=== PATIENT | female | born 1945 | race Caucasian/White ===

== ENCOUNTER → 2018-11-22 | Outpatient (CLI) | payer MEDICARE, OTHER, SELFPAY ==
[2018-11-22 11:33] VITALS: BMI 27.5
[2018-11-22 21:59] LABS: Absolute Lymphocyte Count 1.57 X10^3/ul (0.83-4.51); Absolute Neutrophil Count 8.8 X10^3/uL (2.0-7.7); Basophil# 0.03 X10^3/uL; Basophil% 0.3 % (0-1); Eosinophil# 0.06 X10^3/uL; Eosinophils% 0.5 % (0-5); Hematocrit 47.3 % (37-47); Hemoglobin 15.6 g/dl (12.0-15.0); Lymphocyte # 1.57 X10^3/ul (4.0); Lymphocyte % 14.3 % (19-41); Mean Corpuscular Hgb 31.5 pg (27.0-32.0); Mean Corpuscular Volume 95.6 fL (81-99); Mean Platelet Vol. 9.6 fl (6.2-12.0); Monocyte% 4.6 % (0-10); Neutrophil % 80.1 % (47-70); Platelet Count 331 K/mm3 (150-450); RBC Distribution Width CV 12.4 % (11.6-14.6); RBC Distribution Width SD 42.8 fl (35.1-43.9); Red Blood Count 4.95 M/mm3 (4.2-5.4)
[2018-11-22 22:00] LABS: POSITIVE COUNT NO; POSITIVE DIFFERENTIAL NO; POSITIVE MORPHOLOGY NO
[2018-11-22 22:12] LABS: AST(SGOT) 27 U/L (15-37); Alanine Aminotransfer ALT/SGPT 29 U/L (13-56); Albumin, Serum 4.1 g/dL (3.2-5.0); Alkaline Phosphatase 85 U/L (45-117); Anion Gap 7 (5-15); BUN 18 mg/dL (7-18); BUN/Creat Ratio 17.6 RATIO (10-20); Calcium,Total 9.3 mg/dL (8.5-10.1); Chloride 107 mmol/L (98-107); Cholesterol 193 mg/dL (200); Creatinine, Serum 1.02 mg/dL (0.55-1.02); EST Glomerular Filtration Rate 57 mL/min (>60); Est Glom Filt Rate - Afr Amer 68 mL/min (>60); Globulin 4.1 g/dL (2.2-4.2); Glucose 142 mg/dL (74-106); High Density Lipoprotein 70 mg/dL; Potassium 3.8 mmol/L (3.5-5.1); Protein, Total 8.2 g/dL (6.4-8.2); Sodium Level 142 mmol/L (136-145); Thyroid Stim Hormone (TSH) 1.45 uIU/mL (0.358-3.74); Triglycerides 112 mg/dL; Very Low Density Lipoprotein 22 mg/dL (5-40)
== END | disposition home or self-care (01) ==
PROVIDERS: Referring Provider Nurse Practitioner; Visit Provider Nurse Practitioner
DX: E78.5 Hyperlipidemia, unspecified (principal); R10.13 Epigastric pain; R68.84 Jaw pain; R30.0 Dysuria
CPT/HCPCS: 80053; 80061; 84443; 84484; 85025

== ENCOUNTER → 2020-02-17 | Outpatient (CLI) | payer MEDICARE, OTHER, SELFPAY ==
[2020-02-17 15:07] VITALS: BMI 26.7
[2020-02-17 21:05] LABS: Absolute Neutrophil Count 3.3 X10^3/uL (2.0-7.7); Basophil# 0.07 X10^3/uL; Eosinophil# 0.18 X10^3/uL; Eosinophils% 2.5 % (0-5); Hematocrit 45.3 % (37-47); Hemoglobin 14.7 g/dL (12.0-15.0); Lymphocyte % 41.6 % (19-41); Mean Corp Hgb Conc 32.5 g/dL (32-36); Mean Corpuscular Hgb 31.6 pg (27.0-32.0); Mean Corpuscular Volume 97.4 fL (81-99); Mean Platelet Vol. 9.7 fl (6.2-12.0); Monocyte# 0.63 X10^3/uL; Monocyte% 8.7 % (0-10); NRBC Flagged by Analyzer 0 % (0-5); Neutrophil # 3.32 X10^3/uL (2.7-7.7); Neutrophil % 46.1 % (47-70); Platelet Count 332 K/mm3 (150-450); RBC Distribution Width SD 42.6 fl (35.1-43.9); Red Blood Count 4.65 M/mm3 (4.2-5.4); White Blood Count 7.2 K/mm3 (4.4-11.0)
[2020-02-17 21:32] LABS: ALB/GLOB Ratio 1.1 RATIO (0.9-2.4); AST(SGOT) 20 U/L (15-37); Alanine Aminotransfer ALT/SGPT 26 U/L (13-56); Albumin, Serum 4.1 g/dL (3.2-5.0); Alkaline Phosphatase 75 U/L (45-117); Anion Gap 8 (5-15); BUN 12 mg/dL (7-18); BUN/Creat Ratio 11.4 RATIO (10-20); Calcium,Total 9.2 mg/dL (8.5-10.1); Chloride 105 mmol/L (98-107); Cholesterol 173 mg/dL (200); Creatinine, Serum 1.05 mg/dL (0.55-1.02); EST Glomerular Filtration Rate 55 mL/min (>60); Est Glom Filt Rate - Afr Amer 66 mL/min (>60); Globulin 3.8 g/dL (2.2-4.2); Glucose 111 mg/dL (74-106); High Density Lipoprotein 70 mg/dL; Potassium 3.8 mmol/L (3.5-5.1); Protein, Total 7.9 g/dL (6.4-8.2); Sodium Level 140 mmol/L (136-145); Triglycerides 128 mg/dL; Very Low Density Lipoprotein 26 mg/dL (5-40)
== END | disposition home or self-care (01) ==
PROVIDERS: Referring Provider Nurse Practitioner; Visit Provider Nurse Practitioner
DX: I10 Essential (primary) hypertension (principal); E78.5 Hyperlipidemia, unspecified
CPT/HCPCS: 80053; 80061; 85025

== ENCOUNTER → 2021-02-10 | Outpatient (CLI) | payer MEDICARE, SELFPAY ==
[2021-02-10 17:53] VITALS: BMI 27.3
[2021-02-10 23:55] LABS: Absolute Neutrophil Count 3.1 X10^3/uL (2.0-7.7); Basophil# 0.07 X10^3/uL; Eosinophils% 2.8 % (0-5); Hematocrit 45.3 % (37-47); Hemoglobin 14.8 g/dL (12.0-15.0); Mean Corp Hgb Conc 32.7 g/dL (32-36); Mean Corpuscular Hgb 31.1 pg (27.0-32.0); Mean Corpuscular Volume 95.2 fL (81-99); Mean Platelet Vol. 9.6 fl (6.2-12.0); Monocyte% 9.7 % (0-10); NRBC Flagged by Analyzer 0 % (0-5); Neutrophil # 3.13 X10^3/uL (2.7-7.7); Neutrophil % 43.4 % (47-70); Platelet Count 351 K/mm3 (150-450); RBC Distribution Width CV 11.7 % (11.6-14.6); RBC Distribution Width SD 40.5 fl (35.1-43.9); Red Blood Count 4.76 M/mm3 (4.2-5.4); White Blood Count 7.2 K/mm3 (4.4-11.0)
[2021-02-11 00:09] LABS: ALB/GLOB Ratio 0.9 RATIO (0.9-2.4); AST(SGOT) 19 U/L (15-37); Alanine Aminotransfer ALT/SGPT 23 U/L (13-56); Albumin, Serum 3.7 g/dL (3.2-5.0); Alkaline Phosphatase 91 U/L (45-117); Anion Gap 7 (5-15); BUN 17 mg/dL (7-18); BUN/Creat Ratio 18.7 RATIO (10-20); Calcium,Total 9.1 mg/dL (8.5-10.1); Chloride 107 mmol/L (98-107); Cholesterol 195 mg/dL (200); Creatinine, Serum 0.91 mg/dL (0.55-1.02); EST Glomerular Filtration Rate 64 mL/min (>60); Est Glom Filt Rate - Afr Amer 78 mL/min (>60); Globulin 4.2 g/dL (2.2-4.2); Glucose 114 mg/dL (74-106); High Density Lipoprotein 64 mg/dL; Potassium 3.9 mmol/L (3.5-5.1); Protein, Total 7.9 g/dL (6.4-8.2); Sodium Level 139 mmol/L (136-145); Triglycerides 197 mg/dL; Very Low Density Lipoprotein 39 mg/dL (5-40)
== END | disposition home or self-care (01) ==
PROVIDERS: PCP Nurse Practitioner; Referring Provider Nurse Practitioner; Visit Provider Nurse Practitioner
DX: I10 Essential (primary) hypertension (principal)
CPT/HCPCS: 80053; 80061; 85025

== ENCOUNTER → 2022-02-19 | Outpatient (CLI) | payer MEDICARE, SELFPAY ==
[2022-02-19 21:48] LABS: Absolute Lymphocyte Count 3.55 X10^3/uL (0.83-4.51); Basophil# 0.06 X10^3/uL; Basophil% 0.8 % (0-1); Eosinophil# 0.17 X10^3/uL; Eosinophils% 2.3 % (0-5); Hematocrit 45.2 % (37-47); Hemoglobin 14.7 g/dL (12.0-15.0); Lymphocyte # 3.55 X10^3/ul (0.83-4.51); Lymphocyte % 47.7 % (19-41); Mean Corp Hgb Conc 32.5 g/dL (32-36); Mean Corpuscular Volume 98.3 fL (81-99); Mean Platelet Vol. 9.5 fl (6.2-12.0); Monocyte# 0.64 X10^3/uL; Monocyte% 8.6 % (0-10); NRBC Flagged by Analyzer 0 % (0-5); Neutrophil # 3.02 X10^3/uL (2.7-7.7); Neutrophil % 40.5 % (47-70); Platelet Count 329 K/mm3 (150-450); RBC Distribution Width CV 12.2 % (11.6-14.6); RBC Distribution Width SD 44.1 fl (35.1-43.9); White Blood Count 7.5 K/mm3 (4.4-11.0)
[2022-02-19 22:06] LABS: AST(SGOT) 29 U/L (15-37); Alanine Aminotransfer ALT/SGPT 30 U/L (13-56); Albumin, Serum 3.8 g/dL (3.2-5.0); Alkaline Phosphatase 68 U/L (45-117); Anion Gap 8 (5-15); BUN 15 mg/dL (7-18); BUN/Creat Ratio 16.1 RATIO (10-20); Calcium,Total 9.2 mg/dL (8.5-10.1); Chloride 103 mmol/L (98-107); Cholesterol 179 mg/dL (200); Creatinine, Serum 0.93 mg/dL (0.55-1.02); EST Glomerular Filtration Rate 62 mL/min (>60); Est Glom Filt Rate - Afr Amer 75 mL/min (>60); Globulin 3.9 g/dL (2.2-4.2); Glucose 85 mg/dL (74-106); High Density Lipoprotein 59 mg/dL; Potassium 4.2 mmol/L (3.5-5.1); Protein, Total 7.7 g/dL (6.4-8.2); Sodium Level 139 mmol/L (136-145); Triglycerides 181 mg/dL; Very Low Density Lipoprotein 36 mg/dL (5-40)
[2022-02-22 15:40] LABS: Vitamin D 1,25-Dihydroxy 33.6 pg/mL (24.8-81.5)
== END | disposition home or self-care (01) ==
PROVIDERS: PCP Nurse Practitioner; Visit Provider Nurse Practitioner
DX: I10 Essential (primary) hypertension (principal); E55.9 Vitamin D deficiency, unspecified
CPT/HCPCS: 80053; 80061; 82652; 85025

== ENCOUNTER → 2023-02-20 | Outpatient (CLI) | payer MEDICARE, SELFPAY ==
[2023-02-20 20:55] LABS: Absolute Lymphocyte Count 3.61 X10^3/uL (0.83-4.51); Absolute Neutrophil Count 2.8 X10^3/uL (2.0-7.7); Basophil# 0.05 X10^3/uL; Basophil% 0.7 % (0-1); Eosinophil# 0.18 X10^3/uL; Eosinophils% 2.5 % (0-5); Hematocrit 45.2 % (37-47); Hemoglobin 14.6 g/dL (12.0-15.0); Lymphocyte # 3.61 X10^3/ul (0.83-4.51); Lymphocyte % 49.6 % (19-41); Mean Corp Hgb Conc 32.3 g/dL (32-36); Mean Corpuscular Hgb 31.3 pg (27.0-32.0); Mean Platelet Vol. 9.4 fl (6.2-12.0); Monocyte# 0.66 X10^3/uL; Monocyte% 9.1 % (0-10); NRBC Flagged by Analyzer 0 % (0-5); Neutrophil # 2.77 X10^3/uL (2.7-7.7); Platelet Count 330 K/mm3 (150-450); RBC Distribution Width CV 12.8 % (11.6-14.6); RBC Distribution Width SD 45.3 fl (35.1-43.9); Red Blood Count 4.66 M/mm3 (4.2-5.4); White Blood Count 7.3 K/mm3 (4.4-11.0)
[2023-02-20 21:08] LABS: ALB/GLOB Ratio 0.9 RATIO (0.9-2.4); AST(SGOT) 37 U/L (15-37); Alanine Aminotransfer ALT/SGPT 42 U/L (13-56); Albumin, Serum 3.7 g/dL (3.2-5.0); Alkaline Phosphatase 77 U/L (45-117); Anion Gap 4 (5-15); BUN 13 mg/dL (7-18); BUN/Creat Ratio 11.9 RATIO (10-20); Calcium,Total 9.1 mg/dL (8.5-10.1); Chloride 107 mmol/L (98-107); Cholesterol 199 mg/dL (200); Creatinine, Serum 1.09 mg/dL (0.55-1.02); EST Glomerular Filtration Rate 52 mL/min (>60); Est Glom Filt Rate - Afr Amer 63 mL/min (>60); Globulin 3.9 g/dL (2.2-4.2); Glucose 97 mg/dL (74-106); High Density Lipoprotein 73 mg/dL; Protein, Total 7.6 g/dL (6.4-8.2); Sodium Level 139 mmol/L (136-145); Triglycerides 121 mg/dL; Very Low Density Lipoprotein 24 mg/dL (5-40)
== END | disposition home or self-care (01) ==
PROVIDERS: PCP Nurse Practitioner; Referring Provider Nurse Practitioner; Visit Provider Nurse Practitioner
DX: E78.5 Hyperlipidemia, unspecified (principal); I10 Essential (primary) hypertension
CPT/HCPCS: 80053; 80061; 85025

== ENCOUNTER → 2024-02-17 | Outpatient (CLI) | payer MEDICARE, SELFPAY ==
[2024-02-17 21:15] LABS: Absolute Lymphocyte Count 4.41 X10^3/uL (0.83-4.51); Absolute Neutrophil Count 4.7 X10^3/uL (2.0-7.7); Basophil# 0.06 X10^3/uL; Basophil% 0.6 % (0-1); Eosinophil# 0.13 X10^3/uL; Eosinophils% 1.3 % (0-5); Hematocrit 46.7 % (37-47); Hemoglobin 15.4 g/dL (12.0-15.0); Lymphocyte # 4.41 X10^3/ul (0.83-4.51); Lymphocyte % 44.3 % (19-41); Mean Corpuscular Hgb 32.1 pg (27.0-32.0); Mean Corpuscular Volume 97.3 fL (81-99); Mean Platelet Vol. 9.3 fl (6.2-12.0); Monocyte# 0.66 X10^3/uL; Monocyte% 6.6 % (0-10); NRBC Flagged by Analyzer 0 % (0-5); Neutrophil # 4.68 X10^3/uL (2.7-7.7); Neutrophil % 47.1 % (47-70); Platelet Count 374 K/mm3 (150-450); RBC Distribution Width CV 12.2 % (11.6-14.6); RBC Distribution Width SD 44.2 fl (35.1-43.9)
[2024-02-17 21:31] LABS: AST(SGOT) 28 U/L (15-37); Alanine Aminotransfer ALT/SGPT 29 U/L (13-56); Albumin, Serum 4.2 g/dL (3.2-5.0); Alkaline Phosphatase 80 U/L (45-117); Anion Gap 6 (5-15); BUN 22 mg/dL (7-18); Calcium,Total 9.7 mg/dL (8.5-10.1); Chloride 104 mmol/L (98-107); Cholesterol 183 mg/dL (200); EST Glomerular Filtration Rate 51 mL/min (>60); Est Glom Filt Rate - Afr Amer 62 mL/min (>60); Globulin 4.1 g/dL (2.2-4.2); Glucose 128 mg/dL (74-106); High Density Lipoprotein 75 mg/dL; Potassium 3.9 mmol/L (3.5-5.1); Protein, Total 8.3 g/dL (6.4-8.2); Sodium Level 137 mmol/L (136-145); Triglycerides 131 mg/dL; Very Low Density Lipoprotein 26 mg/dL (5-40)
== END | disposition home or self-care (01) ==
PROVIDERS: PCP Nurse Practitioner; Visit Provider Nurse Practitioner
DX: E78.5 Hyperlipidemia, unspecified (principal); I10 Essential (primary) hypertension; M54.16 Radiculopathy, lumbar region
CPT/HCPCS: 80053; 80061; 85025

== ENCOUNTER → 2025-02-08 | Outpatient (CLI) | payer MEDICARE, SELFPAY ==
[2025-02-09 00:20] LABS: Absolute Lymphocyte Count 3.22 X10^3/uL (0.83-4.51); Absolute Neutrophil Count 4.5 X10^3/uL (2.0-7.7); Basophil% 1.1 % (0-1); Eosinophil# 0.38 X10^3/uL; Eosinophils% 4.1 % (0-5); Hematocrit 44.8 % (37-47); Hemoglobin 14.8 g/dL (12.0-15.0); Lymphocyte # 3.22 X10^3/ul (0.83-4.51); Lymphocyte % 35.1 % (19-41); Mean Corpuscular Hgb 32.3 pg (27.0-32.0); Mean Corpuscular Volume 97.8 fL (81-99); Mean Platelet Vol. 9.6 fl (6.2-12.0); Monocyte# 0.91 X10^3/uL; Monocyte% 9.9 % (0-10); NRBC Flagged by Analyzer 0 % (0-5); Neutrophil # 4.53 X10^3/uL (2.7-7.7); Neutrophil % 49.4 % (47-70); Platelet Count 379 K/mm3 (150-450); RBC Distribution Width CV 12.3 % (11.6-14.6); RBC Distribution Width SD 44.2 fl (35.1-43.9); Red Blood Count 4.58 M/mm3 (4.2-5.4); White Blood Count 9.2 K/mm3 (4.4-11.0)
[2025-02-09 02:21] LABS: ALB/GLOB Ratio 1.2 RATIO (0.9-2.4); AST(SGOT) 33 U/L (<=31); Alanine Aminotransfer ALT/SGPT 21 U/L (<=34); Albumin, Serum 4.2 g/dL (3.4-4.8); Alkaline Phosphatase 84 U/L (35-104); Anion Gap 13 (5-15); BUN 17 mg/dL (4-19); BUN/Creat Ratio 17.4 RATIO (10-20); Calcium,Total 9.8 mg/dL (7.6-11.0); Chloride 100 mmol/L (98-108); Creatinine, Serum 0.97 mg/dL (0.70-1.20); EST Glomerular Filtration Rate 60 (>60); Globulin 3.4 g/dL (2.2-4.2); Glucose 108 mg/dL (70-99); Potassium 4.2 mmol/L (3.3-5.1); Protein, Total 7.5 g/dL (5.9-8.4); Sodium Level 136 mmol/L (133-145); Total Bilirubin 0.46 mg/dL (0.00-1.30)
[2025-02-09 06:00] LABS: Cholesterol 169 mg/dL (<=200); High Density Lipoprotein 57 mg/dL; Low Density Lipoprotein Calc. 81 mg/dL; Triglycerides 154 mg/dL; Very Low Density Lipoprotein 31 mg/dL (5-40); cholesterol:hdl ratio screen 2.96
== END | disposition home or self-care (01) ==
PROVIDERS: PCP Nurse Practitioner; Referring Provider Nurse Practitioner; Visit Provider Nurse Practitioner
DX: I10 Essential (primary) hypertension (principal); E78.5 Hyperlipidemia, unspecified
CPT/HCPCS: 80053; 80061; 85025

== ENCOUNTER → 2025-04-20 | Outpatient (CLI) | payer MEDICARE, SELFPAY | END | disposition home or self-care (01) | PROVIDERS: PCP Nurse Practitioner; Visit Provider Nurse Practitioner | DX: N30.01 Acute cystitis with hematuria (principal); R30.0 Dysuria | CPT/HCPCS: 87077; 87086; 87088; 87186 ==

== ENCOUNTER → 2025-06-02 | Outpatient (CLI) | payer MEDICARE, SELFPAY ==
--- OUTSIDE RECORDS SUMMARY | 2025-06-02 17:03 | XMS RPT_ITS | CCD ---
Author Organization [facility] Care Team Providers Care Small Package And Bundle Sorter Clerk Name Role Phone Unavailable Primary Care Provider UnavailCinda Dan Primary Care Provider [phone] Derrek WAX POT TENDER-C, Cinda Primary Care Provider Derrek WAX POT TENDER-C, Cinda Attending Provider Anglin WAX POT TENDER-C, Cinda Referring Provider Anglin WAX POT TENDER, Cinda Attending Unavailable Anglin WAX POT TENDER, Cinda Referring Unavailable Anglin WAX POT TENDER, Cinda Primary Care Unavailable Anglin WAX POT TENDER, Cinda Attending Unavailable Anglin WAX POT TENDER, Cinda Primary Care Unavailable Anglin WAX POT TENDER-C, Cinda Primary Care Physician Derrek WAX POT TENDER-C, Cinda Attending Physician Allergies Allergy Classification Reported Allergen(s) Allergy Type Date of Onset Reaction(s) Facility (1 source) Penicillins Propensity to adverse reactions to drug 5 [place], [place] (1 source) Sulfonamides (Antibiotic) Propensity to adverse reactions to drug 5 [place] (2 sources) Penicillins Allergy to substance 9 Swelling [facility] (2 sources) Sulfonamides (Antibiotic) Allergy to substance 9 Rash [facility] (1 source) Penicillins Drug allergy (disorder) 9 [facility] Repository (1 source) Sulfonamides (Antibiotic) Drug allergy (disorder) 9 [facility] Repository Medications Current Medications Medication Drug Class(es) Dates Sig (Normalized) Sig (Original) ciprofloxacin 500 mg oral tablet (3 sources) Quinolone Antimicrobial Start: 04-20-2025 take 1 tablet by mouth twice daily Start: 10-31-2018 End: 11-03-2018 take 1 tablet by mouth twice daily Ciprofloxacin Hcl (Cipro) 500 mg tablet Discontinued 500 mg PO TWICE A DAY 6 3 0 October 31, 2018 12:00am November 02, 2018 12:00am November 03, 2018 12:09am latanoprost 0.05 mg/ml ophthalmic solution (2 sources) Prostaglandin Analog Start: 02-19-2022 Multiple Vitamins-Minerals (MULTI COMPLETE) CAPS (1 source) Multiple Vitamins-Minerals (MULTI COMPLETE) CAPS Take by mouth 0 Active ondansetron 4 mg oral tablet (1 source) Serotonin-3 Receptor Antagonist Start: 01-13-2018 take 1 tablet by mouth every eight hours as needed for nausea ondansetron (ZOFRAN) 4 MG tablet Take 1 tablet by mouth every 8 hours as needed for Nausea 10 tablet 0 01/13/2018 Active Completed/Discontinued Medications Medication Drug Class(es) Dates Sig (Normalized) Sig (Original) atorvastatin 10 mg oral tablet (20 sources) HMG-CoA Reductase Inhibitor Start: 06-05-2018 End: 02-08-2025 take 1 tablet by mouth once daily Atorvastatin 10 mg tablet Discontinued 10 mg PO DAILY 90 3 2024 4:12pm February 08, 2025 3:12pm gabapentin 100 mg oral capsule (10 sources) Anti-epileptic Agent Start: 02-23-2020 End: 02-10-2021 take 2 capsules by mouth four times daily as needed for pain Gabapentin 100 mg capsule Discontinued 200 mg PO .qid as needed for pain (scale score 7-10) 240 30 1 February 23, 2020 1:33pm February 10, 2021 8:35pm Start: 11-20-2019 End: 12-20-2019 take 2 capsules by mouth four times daily as needed for pain Gabapentin 100 mg capsule Discontinued 200 mg PO .qid as needed for pain (scale score 7-10) 240 30 0 November 20, 2019 4:27pm December 19, 2019 12:00am December 20, 2019 12:02am irbesartan 300 mg oral tablet (20 sources) Angiotensin 2 Receptor Michelle Start: 06-05-2018 End: 02-08-2025 take 1 tablet by mouth once daily Irbesartan 300 mg tablet Discontinued 300 mg PO DAILY 90 2024 4:12pm February 08, 2025 3:12pm predniSONE 20 mg oral tablet (14 sources) Start: 03-11-2020 End: 02-10-2021 take 2 tablets by mouth once daily Prednisone 20 mg tablet Discontinued 40 mg PO DAILY 20 0 March 11, 2020 12:00am February 10, 2021 8:35pm Start: 02-23-2020 End: 03-04-2020 take 2 tablets by mouth once daily Prednisone 20 mg tablet Discontinued 40 mg PO DAILY 20 10 0 February 23, 2020 1:33pm March 03, 2020 12:00am March 04, 2020 12:03am Start: 11-20-2019 End: 11-30-2019 take 2 tablets by mouth once daily Prednisone 20 mg tablet Discontinued 40 mg PO DAILY 20 10 November 20, 2019 4:27pm November 29, 2019 12:00am November 30, 2019 12:01am traMADol hydrochloride 50 mg oral tablet (2 sources) Opioid Agonist Start: 03-11-2020 End: 02-10-2021 take 1 tablet by mouth three times daily as needed for pain Tramadol 50 mg tablet Discontinued 50 mg PO THREE TIMES A DAY as needed for pain 63 5 March 11, 2020 12:00am February 10, 2021 8:35pm Radiculopathy, lumbar region Pain in right lower leg Problems Active Problems Problem Classification Problem Date Documented Date Episodic/Chronic Abdominal pain (2 sources) Epigastric pain; Translations: [Epigastric pain] 11-22-2018 Episodic Disorders of lipid metabolism (4 sources) Hyperlipidemia; Translations: [Hyperlipidemia, unspecified] Onset: 02-20-2016 02-20-2016 Chronic Disorders of teeth and jaw (2 sources) Jaw pain; Translations: [Jaw pain] 11-22-2018 Episodic Essential hypertension (5 sources) Essential hypertension; Translations: [Essential (primary) hypertension] Onset: 02-20-2016 02-20-2016 Chronic Genitourinary symptoms and ill-defined conditions (2 sources) Dysuria; Translations: [Dysuria] 11-03-2018 Episodic Glaucoma (2 sources) Glaucoma; Translations: [Unspecified glaucoma] 02-19-2022 Chronic Nutritional deficiencies (2 sources) Vitamin D deficiency; Translations: [Vitamin D deficiency, unspecified] 02-19-2022 Chronic Other connective tissue disease (2 sources) Pain of right lower leg; Translations: [Pain in right lower leg] 03-11-2020 Episodic Other connective tissue disease (1 source) Heavy legs; Translations: [Other symptoms and signs involving the musculoskeletal system] 04-22-2025 Episodic Other lower respiratory disease (1 source) Dyspnea; Translations: [Shortness of breath] 05-11-2025 Episodic Spondylosis; intervertebral disc disorders; other back problems (1 source) Herniation of nucleus pulposus of lumbar intervertebral disc; Translations: [Other intervertebral disc displacement, lumbar region] 05-11-2025 Chronic Spondylosis; intervertebral disc disorders; other back problems (2 sources) Lumbar radiculopathy; Translations: [Radiculopathy, lumbar region] 11-20-2019 Episodic Urinary tract infections (5 sources) Urinary tract infectious disease; Translations: [Urinary tract infection, site not specified] Onset: 05-01-2025 10-31-2018 Episodic Past or Other Problems Problem Classification Problem Date Documented Da te Episodic/Chronic Other bone disease and musculoskeletal deformities (2 sources) Osteopenia; Translations: [Other specified disorders of bone density and structure, unspecified site] Onset: 04-04-2015 04-04-2015 Episodic Results Test Name Value Interpretation Reference Range Facility Urine Cultureon 04-22-2025 [facility] Escherichia coli Nutrioso Count >100,000 Escherichia coli: REACTION Ampicillin Islt NANCY <=2 Ampicillin+Sulbac Islt NANCY <=2 S Cefepime Islt NANCY <=0.12 S cefTRIAXone Islt NANCY <=0.25 S Ciprofloxacin Islt NANCY <=0.06 S B-Lactamase Extended Susc Islt NEG Gentamicin Islt NANCY <=1 S levoFLOXacin Islt NANCY <=0.12 S Meropenem Islt NANCY <=0.25 S Nitrofurantoin Islt NANCY <=16 S Pip+Tazo Islt NANCY <=4 S TMP SMX Islt NANCY <=20 S Normal [facility] Comment on above: Performed By: #### M [id number] #### [facility] Laboratory [facility] [place], [address] Laboratory - Chemistry and C hemistry - challengeOrdered By: Cinda Anglin on 04-20-2025 Bilirubin Ql (U) Negative [facility] Glucose Ql (U) Negative [facility] Ketones Ql (U) Negative [facility] pH (U) 6.0 [pH] [facility] Specific gravity (U) [Rel density] 1.015 [facility] Urobilinogen (U) [Mass/Vol] 0.3390151 mg/dL [facility] Laboratory - Hematology and Cell countsOrdered By: Cinda Anglin on 04-20-2025 Hemoglobin Ql (U) Large [facility] Laboratory - Specimen inform ationOrdered By: Cinda Anglin on 04-20-2025 Clarity (U) Cloudy [facility] Color (U) DARK YELLOW [facility] Laboratory - UrinalysisOrder ed By: Cinda Anglin on 04-20-2025 Nitrite Ql (U) Positive [facility] Protein Ql (U) 3+ [facility] No Panel InformationOrdered By: Cinda Anglin on 04-20-2025 Urine Leukocytes Positive [facility] Urine Non-Hemolyzed Blood [facility] Urine cultureOrdered By: Ovidio Anglin on 04-20-2025 Bacteria identified Cx Nom (U) Escherichia coli Abnormal [facility] CBC W/Diff, Automatedon 07-0 Absolute Lymph 3.22 X10 3/uL Normal 0.83-4.51 [facility] Comment on above: Performed By: #### L 500.4100, L500.4050, L100.0100 #### [facility] Laboratory [address] [place], [address] Absolute Neut 4.5 X10 3/uL Normal 2.0-7.7 [facility] Comment on above: Performed By: #### L 500.4100, L500.4050, L100.0100 #### [facility] Laboratory [address] [place], [address] Basophils/100 WBC (Bld) 1.1 % High 0-1 [facility] Comment on above: Performed By: #### L 500.4100, L500.4050, L100.0100 #### [facility] Laboratory [address] [place], [address] Eosinophils/100 WBC (Bld) 4.1 % Normal 0-5 [facility] Comment on above: Performed By: #### L 500.4100, L500.4050, L100.0100 #### [facility] Laboratory [address] [place], [address] Erythrocyte distribution width (RBC) [Ratio] 12.3 % Normal 11.6-14.6 [facility] Comment on above: Performed By: #### L 500.4100, L500.4050, L100.0100 #### [facility] Laboratory [address] [place], [address] Hematocrit (Bld) [Volume fraction] 44.8 % Normal 37-47 [facility] Comment on above: Performed By: #### L 500.4100, L500.4050, L100.0100 #### [facility] Laboratory [address] [place], [address] Hemoglobin (Bld) [Mass/Vol] 14.8 g/dL Normal 12.0-15.0 [facility] Comment on above: Performed By: #### L 500.4100, L500.4050, L100.0100 #### [facility] Laboratory [address] [place], [address] IG% 0.400 Normal 0.0-0.9 [facility] Comment on above: Result Comment: IG% - Immature Granulocytes (promyelocytes, myelocytes and metamyelocytes) > 1% indicates that a LEFT SHIFT is Present. Performed By: #### L 500.4100, L500.4050, L100.0100 #### [facility] Laboratory [address] [place], [address] Lymphocytes/100 WBC (Bld) 35.1 % Normal 19-41 [facility] Comment on above: Performed By: #### L 500.4100, L500.4050, L100.0100 #### [facility] Laboratory [address] [place], [address] MCH (RBC) [Entitic mass] 32.3 pg High 27.0-32.0 [facility] Comment on above: Performed By: #### L 500.4100, L500.4050, L100.0100 #### [facility] Laboratory [address] [place], [address] MCHC (RBC) [Mass/Vol] 33.0 g/dL Normal 32-[address] [facility] Comment on above: Performed By: #### L 500.4100, L500.4050, L100.0100 #### [facility] Laboratory [address] [place], [address] MCV (RBC) [Entitic vol] 97.8 fL Normal 81-99 [facility] Comment on above: Performed By: #### L 500.4100, L500.4050, L100.0100 #### [facility] Laboratory [address] [place], [address] Monocytes/100 WBC (Bld) 9.9 % Normal 0-10 [facility] Comment on above: Performed By: #### L 500.4100, L500.4050, L100.0100 #### [facility] Laboratory [address] [place], [address] Neutrophils/100 WBC (Bld) 49.4 % Normal 47-70 [facility] Comment on above: Performed By: #### L 500.4100, L500.4050, L100.0100 #### [facility] Laboratory [address] [place], [address] Nucleated RBC (Bld) [#/Vol] 0 10*3/uL Normal 0-5 [facility] Comment on above: Performed By: #### L 500.4100, L500.4050, L100.0100 #### [facility] Laboratory [address] [place], [address] Platelet mean volume (Bld) [Entitic vol] 9.6 fL Normal 6.2-12.0 [facility] Comment on above: Performed By: #### L 500.4100, L500.4050, L100.0100 #### [facility] Laboratory [address] [place], [address] Platelets (Bld) [#/Vol] 379 10*3/uL Normal 150-450 [facility] Comment on above: Performed By: #### L 500.4100, L500.4050, L100.0100 #### [facility] Laboratory [address] [place], [address] RBC (Bld) [#/Vol] 4.58 10*6/uL Normal 4.2-5.4 [facility] Comment on above: Performed By: #### L 500.4100, L500.4050, L100.0100 #### [facility] Laboratory [address] [place], [address] RDW SD 44.2 fl High 35.1-43.9 [facility] Comment on above: Performed By: #### L 500.4100, L500.4050, L100.0100 #### [facility] Laboratory [address] [place], [address] WBC (Bld) [#/Vol] 9.2 10*3/uL Normal 4.4-11.0 [facility] Comment on above: Performed By: #### L 500.4100, L500.4050, L100.0100 #### [facility] Laboratory [address] [place], [address] Comprehensive Metabolic Prof [facility] 02-09-2025 Albumin [Mass/Vol] 4.2 g/dL Normal 3.4-4.8 [facility] Comment on above: Performed By: #### L 500.4100, L500.4050, L100.0100 #### [facility] Laboratory [address] [place], [address] Albumin/Globulin [Mass ratio] 1.2 {ratio} Normal 0.9-2.4 [facility] Comment on above: Performed By: #### L 500.4100, L500.4050, L100.0100 #### [facility] Laboratory [address] [place], [address] ALK PHOS 84 U/L Normal 35-104 [facility] Comment on above: Performed By: #### L 500.4100, L500.4050, L100.0100 #### [facility] Laboratory [address] [place], [address] ALT [Catalytic activity/Vol] 21 U/L Normal <=34 [facility] Comment on above: Performed By: #### L 500.4100, L500.4050, L100.0100 #### [facility] Laboratory [address] [place], [address] AST [Catalytic activity/Vol] 33 U/L High <=31 [facility] Comment on above: Performed By: #### L 500.4100, L500.4050, L100.0100 #### [facility] Laboratory [address] [place], [address] Bilirubin [Mass/Vol] 0.46 mg/dL Normal 0.00-1.[address] [facility] Comment on above: Performed By: #### L 500.4100, L500.4050, L100.0100 #### [facility] Laboratory [address] [place], [address] BUN/CRE 17.4 RATIO Normal 10-20 [facility] Comment on above: Performed By: #### L 500.4100, L500.4050, L100.0100 #### [facility] Laboratory [address] [place], [address] Calcium [Mass/Vol] 9.8 mg/dL Normal 7.6-11.0 [facility] Comment on above: Performed By: #### L 500.4100, L500.4050, L100.0100 #### [facility] Laboratory [address] [place], [address] Chloride [Moles/Vol] 100 mmol/L Normal 98-[address] [facility] Comment on above: Performed By: #### L 500.4100, L500.4050, L100.0100 #### [facility] Laboratory [address] [place], [address] CO2 [Moles/Vol] 23.0 mmol/L Normal 21.0-32.0 [facility] Comment on above: Performed By: #### L 500.4100, L500.4050, L100.0100 #### [facility] Laboratory [address] [place], [address] Creatinine [Mass/Vol] 0.97 mg/dL Normal 0.70-1.[address] [facility] Comment on above: Performed By: #### L 500.4100, L500.4050, L100.0100 #### [facility] Laboratory [address] [place], [address] GAP 13 Normal 5-15 [facility] Comment on above: Performed By: #### L 500.4100, L500.4050, L100.0100 #### [facility] Laboratory [address] [place], [address] GFR/1.73 sq M.predicted among non-blacks MDRD (S/P/Bld) [Vol rate/Area] 60 mL/min/{1.73_m2} Normal >60 [facility] Comment on above: Result Comment: mL/m in/1.73m2 CKD-EPI Creatinine Equation (2020) Performed By: #### L 500.4100, L500.4050, L100.0100 #### [facility] Laboratory [address] [place], [address] Globulin (S) [Mass/Vol] 3.4 g/dL Normal 2.2-4.2 [facility] Comment on above: Performed By: #### L 500.4100, L500.4050, L100.0100 #### [facility] Laboratory [address] [place], [address] Glucose [Mass/Vol] 108 mg/dL High 70-99 [facility] Comment on above: Performed By: #### L 500.4100, L500.4050, L100.0100 #### [facility] Laboratory [address] [place], [address] Potassium [Moles/Vol] 4.2 mmol/L Normal 3.3-5.[address] [facility] Comment on above: Performed By: #### L 500.4100, L500.4050, L100.0100 #### [facility] Laboratory [address] [place], [address] Sodium [Moles/Vol] 136 mmol/L Normal 133-145 [facility] Comment on above: Performed By: #### L 500.4100, L500.4050, L100.0100 #### [facility] Laboratory [address] [place], [address] T PROT 7.5 g/dL Normal 5.9-8.4 [facility] Comment on above: Performed By: #### L 500.4100, L500.4050, L100.0100 #### [facility] Laboratory [address] [place], [address] Urea nitrogen [Mass/Vol] 17 mg/dL Normal 4-19 [facility] Comment on above: Performed By: #### L 500.4100, L500.4050, L100.0100 #### [facility] Laboratory [address] [place], [address] Lipid Profileon 02-09-2025 CHOL:HDL 2.96 Normal [facility] Comment on above: Performed By: #### L 500.4100, L500.4050, L100.0100 #### [facility] Laboratory [address] [place], [address] Cholesterol [Mass/Vol] 169 mg/dL Normal <=200 [facility] Comment on above: Result Comment: Chol esterol level, Desirable <200 mg/dL Borderline high cholesterol 200-239 mg/dL High cholesterol >=240 mg/dL Recommendations of the NCEP Adult Treatment Panel for the following risk-cutoff thresholds for the [place] population. Performed By: #### L 500.4100, L500.4050, L100.0100 #### [facility] Laboratory [address] [place], [address] Cholesterol in HDL [Mass/Vol] 57 mg/dL Normal [facility] Comment on above: Result Comment: Saundra onal Cholesterol Education Program (NCEP) guidelines: <40 mg/dL: Low HDL-cholesterol (major risk factor for CHD) >= 60 mg/dL: High HDL-cholesterol (negative risk factor for CHD) HDL-cholesterol is affected by a number of factors, e.g. smoking, exercise, hormones, sex and age. Performed By: #### L 500.4100, L500.4050, L100.0100 #### [facility] Laboratory [address] [place], [address] Cholesterol in LDL [Mass/Vol] 81 mg/dL Normal [facility] Comment on above: Result Comment: Bord jjswgr=609-452 mg/dL Higher Fpiz=902 mg/dL or greater Performed By: #### L 500.4100, L500.4050, L100.0100 #### [facility] Laboratory [address] [place], [address] Cholesterol in VLDL [Mass/Vol] 31 mg/dL Normal 5-40 [facility] Comment on above: Performed By: #### L 500.4100, L500.4050, L100.0100 #### [facility] Laboratory [address] [place], [address] Triglyceride [Mass/Vol] 154 mg/dL Normal [facility] Comment on above: Result Comment: The drugs N-Acetylcysteine and Metamizole may falsely depress this assay. Normal range: <150 mg/dL Borderline High: 150-199 mg/dL High: 200-499 mg/dL Very High: >500 mg/dL Performed By: #### L 500.4100, L500.4050, L100.0100 #### [facility] Laboratory [address] [place], [place], [address] Absolute lymphocyte countOrd ered By: Cinda Anglin on 02-08-2025 Lymphocytes Auto (Unsp spec) [#/Vol] 3.22 10*3/uL 0.83-4.51 [facility] Absolute neutrophil countOrd ered By: Cinda Anglin on 02-08-2025 Neutrophils (Bld) [#/Vol] 4.5 10*3/uL 2.0-7.7 [facility] Anion gap in Serum or Plasma Ordered By: Cinda Anglin on 02-08-2025 Anion gap [Moles/Vol] 13 mmol/L 5-[address] [facility] Automated lymphocyte count a s percentage of total leukocytesOrdered By: Cinda Anglin on 02-08-2025 Lymphocytes/100 WBC Auto (Unsp spec) 35.1 % 19-41 [facility] BUN/creatinine ratioOrdered By: Cinda Anglin on 02-08-2025 Urea nitrogen/Creatinine [Mass ratio] 17.4 mg/mg 10-20 [facility] Basophil percentageOrdered B y: Cinda Anglin on 02-08-2025 Basophils/100 WBC (Bld) 1.1 % High 0-1 [facility] Bilirubin, totalOrdered By: Cinda Anglin on 02-08-2025 Bilirubin [Mass/Vol] 0.46 mg/dL 0.00-1.[address] [facility] Calculated very low density lipoprotein (VLDL) cholesterol measurementOrdered By: Cinda Anglin on 02-08-2025 Calculated very low density lipoprotein (VLDL) cholesterol measurement 31 mg/dL 5-40 [facility] Carbon dioxide, total [Moles /volume] in Central venous bloodOrdered By: Cinda Anglin on 02-08-2025 CO2 [Moles/Vol] 23.0 mmol/L 21.0-32.0 [facility] Chloride assayOrdered By: Do ra Anglin on 02-08-2025 Chloride [Moles/Vol] 100 mmol/L 98-[address] [facility] Eosinophil percentageOrdered By: Cinda Anglin on 02-08-2025 Eosinophils/100 WBC (Bld) 4.1 % 0-5 [facility] Erythrocyte distribution wid th ratioOrdered By: Cinda Anglin on 02-08-2025 Erythrocyte distribution width (RBC) [Ratio] 12.3 % 11.6-14.6 [facility] Erythrocyte distribution wid th standard deviationOrdered By: Cinad Anglin on 02-08-2025 Erythrocyte distribution width (RBC) [Ratio] 44.2 fl High 35.1-43.9 [facility] Glomerular filtration rate ( GFR) estimation/1.73 sq m using serum, plasma, or whole bOrdered By: Cinda Anglin on 02-08-2025 GFR/1.73 sq M.predicted among non-blacks MDRD (S/P/Bld) [Vol rate/Area] 60 mL/min/{1.73_m2} >60 [facility] Comment on above: mL/min/1.73m2 CKD-EP I Creatinine Equation (2020) Hematocrit Auto (Bld) [Volum e fraction]Ordered By: Cinda Anglin on 02-08-2025 Hematocrit (Bld) [Volume fraction] 44.8 % 37-47 [facility] Hemoglobin measurementOrdere d By: Cinda Anglin on 02-08-2025 Hemoglobin (Bld) [Mass/Vol] 14.8 g/dL 12.0-15.0 [facility] Immature granulocytes/100 WB C Auto (Bld)Ordered By: Cinda Anglin on 02-08-2025 Immature granulocytes/100 WBC (Bld) 0.400 % 0.0-0.9 [facility] Comment on above: IG% - Immature Granu locytes (promyelocytes, myelocytes and metamyelocytes) > 1% indicates that a LEFT SHIFT is Present. LDL calc ser/plasOrdered By: Cinda Anglin on 02-08-2025 Cholesterol in LDL [Mass/Vol] 81 mg/dL [facility] Comment on above: Emuwgpqonj=009-734 m g/dL & Higher Wwdb=278 mg/dL or greater Laboratory - Chemistry and C hemistry - challengeOrdered By: Cinda Anglin on 02-08-2025 AST [Catalytic activity/Vol] 33 U/L High <32 [facility] MCV (mean corpuscular volume ) determinationOrdered By: Cinda Anglin on 02-08-2025 MCV (RBC) [Entitic vol] 97.8 fL 81-99 [facility] Mean corpuscular hemoglobin (MCH) determinationOrdered By: Cinda Anglin on 02-08-2025 MCH (RBC) [Entitic mass] 32.3 pg High 27.0-32.0 [facility] Mean corpuscular hemoglobin concentration (MCHC) determinationOrdered By: Cinda Anglin on 02-08-2025 MCHC (RBC) [Mass/Vol] 33.0 g/dL 32-[address] [facility] Mean platelet volume determi nationOrdered By: Cinda Angiln on 02-08-2025 Platelet mean volume (Bld) [Entitic vol] 9.6 fL 6.2-12.0 [facility] Monocyte percentageOrdered B y: Cinda Anglin on 02-08-2025 Monocytes/100 WBC (Bld) 9.9 % 0-10 [facility] Neutrophil percentageOrdered By: Cinda Anglin on 02-08-2025 Neutrophils/100 WBC (Bld) 49.4 % 47-70 [facility] Nucleated red blood cell per centageOrdered By: Cinda Anglin on 02-08-2025 Nucleated RBC/100 WBC (Bld) [Ratio] 0 % 0-5 [facility] Platelet countOrdered By: Do ra Anglin on 02-08-2025 Platelets (Bld) [#/Vol] 379 10*3/uL 150-450 [facility] Potassium measurement (mass/ volume)Ordered By: Cinda Anglin on 02-08-2025 Potassium (Unsp spec) [Mass/Vol] 4.2 mmol/L 3.3-5.1 [facility] RBC Auto (Bld) [#/Vol]Ordere d By: Cinda Anglin on 02-08-2025 RBC (Bld) [#/Vol] 4.58 10*6/uL 4.2-5.4 [facility] Screening total cholesterol/ high density lipoprotein (HDL) cholesterol ratioOrdered By: Cinda Anglin on 02-08-2025 Cholesterol.total/Cholest blanca in HDL [Mass ratio] 2.96 {ratio} [facility] Serum creatinine measurement (mass/volume)Ordered By: Cinda Anglin on 02-08-2025 Creatinine [Mass/Vol] 0.97 mg/dL 0.70-1.[address] [facility] Serum globulin measurementOr dered By: Cinda Anglin on 02-08-2025 Globulin (S) [Mass/Vol] 3.4 g/dL 2.2-4.2 [facility] Serum glucose measurement (m ass/volume)Ordered By: Cinda Anglin on 02-08-2025 Glucose [Mass/Vol] 108 mg/dL High 70-99 [facility] Serum or plasma alanine schultz otransferase (ALT) measurementOrdered By: Cinda Anglin on 02-08-2025 ALT [Catalytic activity/Vol] 21 U/L <35 [facility] Serum or plasma albumin telma urement (mass/volume)Ordered By: Cinda Anglin on 02-08-2025 Albumin [Mass/Vol] 4.2 g/dL 3.4-4.8 [facility] Serum or plasma albumin/glob ulin mass ratioOrdered By: Cinda Anglin on 02-08-2025 Albumin/Globulin [Mass ratio] 1.2 {ratio} 0.9-2.4 [facility] Serum or plasma alkaline yoseph sphatase measurementOrdered By: Cinda Anglin on 02-08-2025 ALP [Catalytic activity/Vol] 84 U/L 35-104 [facility] Serum or plasma calcium telma urement (mass/volume)Ordered By: Cinda Anglin on 02-08-2025 Calcium [Mass/Vol] 9.8 mg/dL 7.6-11.0 [facility] Serum or plasma cholesterol in HDL measurement (mass/volume)Ordered By: Cinda Anglin on 02-08-2025 Cholesterol in HDL [Mass/Vol] 57 mg/dL >40 [facility] Comment on above: National Cholesterol Education Program (NCEP) guidelines:<40 mg/dL: Low HDL-cholesterol (major risk factor for CHD)>= 60 mg/dL: High HDL-cholesterol (negative risk factor for CHD)HDL-cholesterol is affected by a number of factors, e.g. smoking, exercise, hormones, sex and age. Serum or plasma cholesterol measurement (mass/volume)Ordered By: Cinda Anglin on 02-08-2025 Cholesterol [Mass/Vol] 169 mg/dL <201 [facility] Comment on above: Cholesterol level, D esirable <200 mg/dLBorderline high cholesterol 200-239 mg/dLHigh cholesterol >=240 mg/dLRecommendations of the NCEP Adult Treatment Panel for the following risk-cutoff thresholds for the [place] population. Serum or plasma urea nitroge n measurement (mass/volume)Ordered By: Cinda Anglin on 02-08-2025 Urea nitrogen [Mass/Vol] 17 mg/dL 4-19 [facility] Sodium levelOrdered By: Cinda Anglin on 02-08-2025 Sodium [Moles/Vol] 136 mmol/L 133-145 [facility] Total proteinOrdered By: Ovidio Anglin on 02-08-2025 Protein [Mass/Vol] 7.5 g/dL 5.9-8.4 [facility] Triglycerides measurementOrd ered By: Cinda Anglin on 02-08-2025 Triglyceride [Mass/Vol] 154 mg/dL <199 [facility] Comment on above: The drugs N-Acetylcy steine and Metamizole may falsely depress this assay. Normal range: <150 mg/dLBorderline High: 150-199 mg/dLHigh: 200-499 mg/dLVery High: >500 mg/dL White blood cell (WBC) count Ordered By: Cinda Anglin on 02-08-2025 WBC (Bld) [#/Vol] 9.2 10*3/uL 4.4-11.0 [facility] 36on 07-04-2024 36 duplicate Normal [facility] CR Spine Lumbosacral 4+ View son 03-14-2020 CR Spine Lumbosacral 4+ Views Patient Name: FAISAL BANEGAS I Diagnostic Radiology Exam Date/Time 03/14/2020 15:17:00 EDT Exam CR Spine Lumbosacral 4+ Views Ordering Physician GOERGE ANGLIN DORA L Accession Number [id number] CPT4 Codes 39475 () Reason For Exam PAIN RT LEG Report LUMBAR SPINE 5 VIEWS CLINICAL INDICATION: PAIN RT LEG TECHNIQUE: Five views of the lumbar spine. COMPARISON: None FINDINGS: Marked constipation noted. Normal SI joints. No significant scoliosis seen. 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 Mild L1-L2 disc space narrowing. Moderate disc space narrowing at L2-L3, L3-L4. L5-S1 shows disc narrowing which is severe. No acute fracture. No focal malalignment. IMPRESSION: 1. Degenerative changes. Marked constipation. Report Dictated on Final Dictating Physician: MD FRANCES JOHN R Signed Date and Time: 03/14/2020 8:45 pm Signed by: MD FRANCES JOHN R Transcribed Date and Time: 03/14/2020 8:46 Normal [facility] XR LUMBAR SPINE (MIN 4 VIEWS )on 03-14-2020 Patient Name: FAISAL BANEGAS I ---Diagnostic Radiology--- Exam Date/Time 03/14/2020 15:17:00 EDT Exam CR Spine Lumbosacral 4+ Views Ordering Physician GEORGE ANGLIN DORA L Accession Number [id number] CPT4 Codes 26154 () Reason For Exam PAIN RT LEG Report LUMBAR SPINE 5 VIEWS CLINICAL INDICATION: PAIN RT LEG TECHNIQUE: Five views of the lumbar spine. COMPARISON: None FINDINGS: Marked constipation noted. Normal SI joints. No significant scoliosis seen. 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 Mild L1-L2 disc space narrowing. Moderate disc space narrowing at L2-L3, L3-L4. L5-S1 shows disc narrowing which is severe. No acute fracture. No focal malalignment. IMPRESSION: 1. Degenerative changes. Marked constipation. Report Dictated on --- Final --- Dictating Physician: MD FRANCES JOHN R Signed Date and Time: 03/14/2020 8:45 pm Signed by: MD FRANCES JOHN R Transcribed Date and Time: 03/14/2020 8:46 [place], [place], [facility] Incoming Radiology Results From [facility] - 03/14/2020 8:46 PM EDT Patient Name: FAISAL BANEGAS I ---Diagnostic Radiology--- Exam Date/Time 03/14/2020 15:17:00 EDT Exam CR Spine Lumbosacral 4+ Views Ordering Physician GEORGE ANGLIN DORA L Accession Number [id number] CPT4 Codes 19453 () Reason For Exam PAIN RT LEG Report LUMBAR SPINE 5 VIEWS CLINICAL INDICATION: PAIN RT LEG TECHNIQUE: Five views of the lumbar spine. COMPARISON: None FINDINGS: Marked constipation noted. Normal SI joints. No significant scoliosis seen. 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 Mild L1-L2 disc space narrowing. Moderate disc space narrowing at L2-L3, L3-L4. L5-S1 shows disc narrowing which is severe. No acute fracture. No focal malalignment. IMPRESSION: 1. Degenerative changes. Marked constipation. Report Dictated on --- Final --- Dictating Physician: MD FRANCES JOHN R Signed Date and Time: 03/14/2020 8:45 pm Signed by: MD FRANCES JOHN R Transcribed Date and Time: 03/14/2020 8:46 [place], [place] Vital Signs Date Time Vital Sign Value Performing Clinician Faci lity 04-20-2025 17:26-0400 Body height 154.94 cm Cinda Anglin [employer] Work Phone: [facility] 04-20-2025 17:26-0400 Body mass index (BMI) [Ratio] 26.8 kg/m2 Cinda Anglin [employer] Work Phone: [facility] 04-20-2025 17:26-0400 Body temperature 98.8 [degF] Cinda Anglin [employer] Work Phone: [facility] 04-20-2025 17:26-0400 Body weight 64.41 kg [place] Anglin [employer] Work Phone: [facility] 04-20-2025 17:26-0400 Diastolic blood pressure 60 mm[Hg] Cinda Anglin [employer] Work Phone: [facility] 04-20-2025 17:26-0400 Heart rate 114 /min [place] Anglin [employer] Work Phone: [facility] 04-20-2025 17:26-0400 Respiratory rate 18 /min Cind[place] Anglin [employer] Work Phone: [facility] 04-20-2025 17:26-0400 SaO2% (BldA) [Mass fraction] 98 % [place]ind[place] Anglin [employer] Work Phone: [facility] 04-20-2025 17:26-0400 Systolic blood pressure 128 mm[Hg] Cind[place]enton Anglin [employer] Work Phone: [facility] 02-08-2025 15:10-0400 Body height 154.94 cm Cind[place]enton Anglin [employer] Work Phone: [facility] 02-08-2025 15:10-0400 Body mass index (BMI) [Ratio] 27.3 kg/m2 Cinda Anglin [employer] Work Phone: [facility] 02-08-2025 15:10-0400 Body temperature 97.9 [degF] Cindakenton Anglni [employer] Work Phone: [facility] 02-08-2025 15:10-0400 Body weight 65.77 kg Cinda Anglin [employer] Work Phone: [facility] 02-08-2025 15:10-0400 Diastolic blood pressure 80 mm[Hg] Cinda Anglin [employer] Work Phone: [facility] 02-08-2025 15:10-0400 Heart rate 98 /min Cind[place]enton Anglin [employer] Work Phone: [facility] 02-08-2025 15:10-0400 Respiratory rate 18 /min Cinda Anglin [employer] Work Phone: [facility] 02-08-2025 15:10-0400 SaO2% (BldA) [Mass fraction] 98 % Cinda Anglin [employer] Work Phone: [facility] 02-08-2025 15:10-0400 Systolic blood pressure 142 mm[Hg] Cinda Anglin [employer] Work Phone: [facility] Encounters Encounter Date Encounter Type Care Provider Facility Start: 04-20-2025 End: 04-20-2025 ambulatory Cinda Anglin [employer] Work Phone: -Laboratory Specimen Start: 04-20-2025 End: 04-20-2025 Patient encounter procedure Cinda Anglin [employer] -Laboratory Specimen Work Phone: Start: 04-20-2025 End: 04-20-2025 ambulatory Cinda Anglin [employer] Facility:[facility] Start: 02-08-2025 End: 02-08-2025 ambulatory Cinda Anglin [employer] Work Phone: -Laboratory Specimen Start: 02-08-2025 End: 02-08-2025 Patient encounter procedure Cinda Anglin [employer] -Laboratory Specimen Work Phone: Start: 02-08-2025 End: 02-08-2025 ambulatory Cinda Anglin [employer] Facility:[facility] Start: 07-04-2024 End: 07-04-2024 Telephone encounter Sola Hernandez RN [facility] Clinical Communication Start: 02-20-2022 Patient encounter status Cinda Anglin [employer] Work Phone: [facility] Start: 03-14-2020 End: 03-14-2020 Subsequent hospital visit by physician Cinda Anglin Work Phone: [facility] Radiology Procedures Date Procedure Procedure Detail Performing Clinician Start: 09-09-2025 Urine culture Cinda franklin [employer] Work Phone: Start: 03-14-2020 Radex spine lumbosac ral minimum 4 views Cinda Anglin Work Phone: Plan of Treatment Date Care Activity Detail Author Start: 04-12-2020 Influenza vaccination Flu vaccine (# 1) [place], [place] Start: 04-09-2019 Creatinine measurement Creatinine mo nitoring [place], [place] Start: 04-09-2019 Lipid panel Lipid screen [place], [place] Start: 04-09-2019 Potassium monitoring Potassium monit oring [place], [place] Start: 01-29-2019 Annual Wellness Visi t (AWV) Annual Wellness Visit (AWV) [place], [place] Start: 01-01-2019 Screening for malign ant neoplasm of breast Breast cancer screen [place], [place] Start: 04-03-2018 Screening for malign ant neoplasm of colon Colon Cancer Screen FIT/FOBT [place], [place] Start: 12-13-2015 DTaP/Tdap/Td vaccine (2 - Td) DTaP/Tdap/Td vaccine (2 - Td) [place] Start: 02-18-1996 Shingles Vaccine (1 of 2) Adamson gles Vaccine (1 of 2) [place], [place] Start: 1945 Hepatitis C screening Hepatitis C sc reen [place], [place] Immunizations Immunization Date Immunization Notes Care Provider Vaughn aponte 06-05-2018 influenza, high dose seasonal, preservative-free [facility] 09-24-2017 pneumococcal polysaccharide vaccine, 23 valent [place], [place] 07-12-2017 influenza, high dose seasonal, preservative-free [place] 05-22-2016 influenza, injectabl e, quadrivalent, contains preservative [place], [place] 02-20-2016 pneumococcal conjuga te vaccine, [address] [facility] 12-12-2005 tetanus toxoid, redu alma delia diphtheria toxoid, and acellular pertussis vaccine, adsorbed [place], [place] Payers Date Payer Category Payer Self-pay [id number] 2025 Self-pay 2014 Medicare MEDICARE MEDICAR E PART A AND B [id number] 2014-Present [phone] [place] [address] [id number] 2014 Unknown [employer] [id number] 2014-Present [phone] [address] [place] [id number] [id number] Medicare [id number] Medicare [id number] Unknown [id number] Unknown [id number] Unknown [id number] Social History Date Type Detail Facility Start: 06-05-2018 Tobacco smoking stat [facility] Former smoker [facility] End: 06-05-2006 History of tobacco use Current smoker [place], [place] End: 06-05-2006 History of tobacco use Cigarette Smoker [place], [place] Start: 06-05-2018 Cigarettes smoked current (pack per day) - Reported [place], [place] Start: 06-05-2018 Tobacco use and exposure Never used [place], [place] Start: 06-05-2018 Alcohol intake Current drinke r of alcohol (finding) [place], [place] Start: 04-04-2015 Alcohol Comment Occasionally [place], [place] Start: 1945 Sex Assigned At Not on file [place] Start: 03-12-2022 Sex Female (finding) [facility] Gender identity Not on file [facility] Tobacco smoking stat [facility] Unknown if ever smoked [facility] Work Phone: Start: 1945 Sex Assigned At Female [facility] Evaluation note 02-08-2025 Note Date & Type Note Facility 02-08-2025 Evaluation note Diagnosis Onset Date Resolution Hyperlipidemia LDL goal <130 acute February 08, 2025 3:02pm Hypertension chronic February 08, 2 025 3:02pm [facility] Work Phone: Evaluation note 02-08-2025 Note Date & Type Note Facility 02-08-2025 Evaluation note Diagnosis Onset Date Resolution Hypertension chronic February 08, 2 025 3:02pm Hyperlipidemia LDL goal <130 deleted February 08, 2025 3:02pm Heavy sensation of lower extremity acute April 20, 2 025 5:14pm Dysuria resolved April 20, 2025 5:14pm UTI (urinary tract infection) resolved April 20 025 5:14pm [facility] Work Phone: Telephone encounter Note 07-04-2024 Telephone Encounter - Sola Hernandez RN - 07/04/2024 10:35 AM EST Note Date & Type Note Facility 07-04-2024 Telephone encounter Note Form atting of this note might be different from the original. duplicate [facility] Note 07-04-2024 Telephone Encounter - Sola Hernandez RN - 07/04/2024 10:35 AM EST Note Date & Type Note Facility 07-04-2024 Miscellaneous Notes Formattin g of this note might be different from the original. duplicate documented in this encounter [facility] Reason for referral (narrative) Note Date & Type Note Facility Reason for referral (narrative) No reason for referral information available [facility] Work Phone: Advance Directives Documents on File Type Date Recorded Patient Fluxer Expl anation Advance Directives and Living Will Power of Carbon Setter Summary Purpose Family History Relationship Condition Age at Onset Recorded Date/T tristan Not Specified Hyperlipidemia Unknown Degeneration of inte rvertebral disc of lumbar region Unknown Hypertension Unknown mother Diabetes mellitus Unknown Cardiac disease Unknown brother Diabetes mellitus Unknown Coronary artery disease Unknown Myocardial infarction Unknown Relationship Condition Age at Onset Recorded Date/T tristan Not Specified Hyperlipidemia Unknown Degeneration of inte rvertebral disc of lumbar region Unknown Hypertension Unknown mother Diabetes mellitus Unknown Cardiac disease Unknown brother Diabetes mellitus Unknown Coronary artery disease Unknown Myocardial infarction Unknown father Cardiac disease Unknown Chief Complaint and Reason for Visit Chief Complaint Admit Date medication refills/labs February 08, 2025 3:02pm Reason for Visit Admit Date Hyperlipidemia LDL goal <130 February 08, 2025 3:02pm Hypertension February 08, 2025 3:02 pm Chief Complaint Admit Date medication refills/labs February 08, 2025 3:02pm Urinary tract infection April 20, 2 025 5:14pm Reason for Visit Admit Date Hypertension February 08, 2025 3:02 pm Hyperlipidemia LDL goal <130 February 08, 2025 3:02pm Heavy sensation of lower extremity Septe mber 2024 5:14pm Dysuria April 20, 2025 5:14pm UTI (urinary tract infection) April 20, 2025 5:14pm Additional Source Comments INFORMATION SOURCE (unrecogn ized section and content) DATE CREATED AUTHOR 03/18/2020 [facility] DATE CREATED AUTHOR AUTHOR'S ORGANIZ ATION 07/07/2024 [facility] DATE CREATED AUTHOR AUTHOR'S ORGANIZ ATION 05/02/2025 [facility] Reason for Visit (unrecogniz ed section and content) Reason Onset Date Comments Error (VOID this visit) 07/04/2024 Care Teams (unrecognized sec tion and content) [employer] Clerk Relationship Specialty Start Date End Date Cinda Anglin [address] [place] [address] PCP - General 03/14/20 Team Status: Active Member Role/Relationship Status Dates Cinda Anglin NP [employer] Primary Care Provider Active Team Status: Inactive Member Role/Relationship Status Dates Cinda Anglin NP [employer] Primary Care Provider Active Start: February 08, 2025 End: February 08, 2025 Cinda Anglin NP, NP-Sherry Attending Provider Active Start: February 08, 2025 End: February 08, 2025 Cinda Anglin NP [employer]-Sherry Referring Provider Active Start: February 08, 2025 End: February 08, 2025 Team Status: Inactive Member Role/Relationship Status Dates Cinda Anglin NP, [employer] Primary Care Provider Active Start: February 08, 2025 End: February 08, 2025 Cinda Anglin NP, [employer] Attending Provider Active Start: February 08, 2025 End: February 08, 2025 Cinda Anglin NP, [employer] Referring Provider Active Start: February 08, 2025 End: February 08, 2025 Team Status: Active Member Role/Relationship Status Dates Cinda Anglin NP, [employer] Primary care physician Active Team Status: Inactive Member Role/Relationship Status Dates Cinda Anglin NP, [employer] Primary care physician Active Start: February 08, 2025 End: February 08, 2025 Cinda Anglin NP, [employer] Attending physician Active Start: February 08, 2025 End: February 08, 2025 Cinda Anglin NP, [employer] Referring Provider Active Start: February 08, 2025 End: February 08, 2025 Team Status: Inactive Member Role/Relationship Status Dates Cinda Anglin NP, [employer] Primary care physician Active Start: February 08, 2025 End: February 08, 2025 Cinda Anglin NP, [employer] Attending physician Active Start: February 08, 2025 End: February 08, 2025 Cinda Anglin NP, [employer] Referring Provider Active Start: February 08, 2025 End: February 08, 2025 Team Status: Inactive Member Role/Relationship Status Dates Cinda Anglin NP, [employer] Primary care physician Active Start: April 20, 2025 End: April 20, 2025 Cinda Anglin NP, [employer] Attending physician Active Start: April 20, 2025 End: April 20, 2025 Cinda Anglin NP, [employer] Referring Provider Active Start: April 20, 2025 End: April 20, 2025 Team Status: Inactive Member Role/Relationship Status Dates Cinda Anglin NP, [employer] Primary care physician Active Start: April 20, 2025 End: April 20, 2025 Cinda Anglin NP, [employer] Attending physician Active Start: April 20, 2025 End: April 20, 2025 Goals (unrecognized section and content) Goals may be documented in a n alternate sectionGoals may be documented in an alternate section FOR RECORDS PERTAINING TO PATIENTS WHO ARE OR HAVE BEEN ENROLLED IN A CHEMICAL DEPENDENCY/SUBSTANCEABUSE PROGRAM, SOME INFORMATION MAY BE OMITTED. This clinical summary was aggregated from multiple sources. Caution should be exercised in using it in the provision of clinical care. This summary normalizes information from multiple sources, and as a consequence, information in this document may materially change the coding, format and clinical context of patient data. In addition, data may be omitted in some cases. CLINICAL DECISIONS SHOULD BE BASED ON THE PRIMARY CLINICAL RECORDS. [facility], [facility]. provides no warranty or guarantee of the accuracy or completeness of information in this document.
== END | disposition home or self-care (01) ==
LOC: LAB 15:57
PROVIDERS: PCP Nurse Practitioner; Referring Provider Internal Medicine Cardiovascular Disease; Visit Provider Internal Medicine Cardiovascular Disease
DX: I48.0 Paroxysmal atrial fibrillation (principal)
CPT/HCPCS: 36415; 84443

== ENCOUNTER → 2025-06-16 | Outpatient (CLI) | payer MEDICARE, SELFPAY ==
--- OUTSIDE RECORDS SUMMARY | 2025-06-16 06:51 | XMS RPT_ITS | CCD ---
Author Organization [facility] Care Team Providers Care Service Coordinator Name Role Phone Unavailable Primary Care Provider Unavailabl e Cinda Anglin Primary Care Provider Anglin TEMPLATE STORAGE CLERK-C, Cinda Primary Care Provider Anglin TEMPLATE STORAGE CLERK-C, Cinda Attending Provider Anglin TEMPLATE STORAGE CLERK-C, Cinda Referring Provider Anglin TEMPLATE STORAGE CLERK-C, Cinda Primary Care Physician Anglin TEMPLATE STORAGE CLERK-C, Cinda Attending Physician Syl, Milbridge Attending Unavailable Syl, Milbridge Referring Unavailable Anglin TEMPLATE STORAGE CLERK, Cinda Primary Care Unavailable Anglin TEMPLATE STORAGE CLERK, Cinda Primary Care Unavailable Anglin TEMPLATE STORAGE CLERK, Cinda Attending Unavailable Anglin TEMPLATE STORAGE CLERK, Cinda Referring Unavailable Anglin TEMPLATE STORAGE CLERK, Cinda Primary Care Unavailable Anglin TEMPLATE STORAGE CLERK, Cinda Attending Unavailable Syl, Milbridge Attending Unavailable Syl, Milbridge Referring Unavailable Anglin TEMPLATE STORAGE CLERK, Cinda Primary Care Unavailable Anglin TEMPLATE STORAGE CLERK, Cinda Referring Unavailable Anglin TEMPLATE STORAGE CLERK, Cinda Primary Care Unavailable Syl, Milbridge Attending Unavailable Allergies Allergy Classification Reported Allergen(s) Allergy Type Date of Onset Reaction(s) Facility (1 source) Penicillins Propensity to adverse reactions to drug 5 [place], [place] (1 source) Sulfonamides (Antibiotic) Propensity to adverse reactions to drug 5 [place] (2 sources) Penicillins Allergy to substance 9 Swelling [facility] (2 sources) Sulfonamides (Antibiotic) Allergy to substance 9 [facility] (1 source) Penicillins Drug allergy (disorder) [address] [place] [address] Repository (1 source) Sulfonamides (Antibiotic) Drug allergy (disorder) [facility] Repository Medications Current Medications Medication Drug Class(es) [...] tablet Discontinued 300 mg PO DAILY 90 3 2024 4:12pm February 08, 2025 3:12pm predniSONE [...] 40 mg PO DAILY 20 10 0 November 20, 2019 4:27pm November 29, 2019 [...] Epigastric pain; Translations: [Epigastric pain] 11-22-2018 Episodic Cardiac dysrhythmias (1 source) Paroxysmal atrial fibrillation; Translations: [Paroxysmal atrial fibrillation] Onset: 06-08-2025 Chronic Conduction disorders (1 source) Left bundle-branch block, unspecified; Translations: [Left bundle-branch block, unspecified] Onset: 06-02-2025 Chronic Disorders of lipid metabolism (5 sources) Hyperlipidemia; Translations: [Hyperlipidemia, unspecified] Onset: 02-20-2016 [...] Dyspnea; Translations: [Shortness of breath] 05-11-2025 Episodic Other lower respiratory disease (1 source) Shortness of breath; Translations: [Shortness of breath] Onset: 06-02-2025 Episodic Other screening for suspected conditions (not mental disorders or infectious disease) (1 source) Abnormal electrocardiogram [ECG] [EKG]; Translations: [Abnormal electrocardiogram [ECG] [EKG]] Onset: 06-13-2025 Episodic Spondylosis; intervertebral disc disorders; other back [...] Test Name Value Interpretation Reference Range Facility Cardiology Visit Reporton Cardiology Visit Report [facility] [address] [place] [address] OFFICE VISIT Date of Service: 06/02/25 MR#: [id number] Acct: [id number] Name: FAISAL BANEGAS I Rep #: [id number] : 1945 Provider: Dr. Srinivas Streeter MD Age/Sex: 80/F Location: [facility] [place] Status: Signed HPI HPI History of Present Illness Details: The patient is a 80-year-old female with a history of hypertension presenting for evaluation of cardiovascular risk due to a significant family history of heart disease. The patient reports a longstanding history of hypertension, which has improved but remains variably controlled. She experiences elevated readings at home, which she attributes to anxiety. She denies chest pain but notes occasional lightheadedness when leaning over. She denies any episodes of dizziness. She denies any chest pain or paroxysmal nocturnal dyspnea but she does have mild shortness of breath when she is climbing stairs. She has a family history of cardiovascular disease, including her mother and younger brother, both of whom had poor circulation in their legs and of myocardial infarctions. Her youngest brother, previously considered the healthiest, now has a pacemaker and may require further interventions. Her physical exam demonstrates clear lung lamar regular rate and rhythm soft 1/6 to 2/6 systolic murmur noted left sternal border and her electrocardiogram demonstrates sinus rhythm with a rate of 100 bpm and left bundle branch block pattern. She recalls having thyroid issues many years ago but does not provide specific details. She is currently retired. Intake Vital Signs 04/20/25 17:26 06/02/25 15:26 06/02/25 15:40 Height 5 ft 1 in 5 ft 1 in Weight: 144 lb BMI 27.1 BP 148/94 H 156/100 H Blood Pressure Location Lt brachial Rt brachial Position Sitting Sitting Respiration 16 16 Pulse 105 H 100 Pulse Source Monitor Intake Visit Reasons: KP HESTER) Clock Smith Required: No Accompanied by: Self Is patient in pain?: No Allergies Penicillins Allergy (Severe, Verified 06/02/25 15:31) Swelling Sulfa (Sulfonamide Antibiotics) Allergy (Severe, Verified 06/02/25 15:31) Rash Medications ???Medication ???Instructions ???Recorded ???Confirmed ???Type latanoprost 0.005 % eye drops 1 drp ophthalmic (eye) QPM 07/2 2 06/02/25 History atorvastatin 10 mg tablet 10 mg PO DAILY #90 tabs 02/08/25 1 Rx irbesartan 300 mg tablet 300 mg PO DAILY #90 tabs 02/08/25 06/02/25 Rx Have you fallen in the past year?: No PFSH Medical History SOB (shortness of breath) Vitamin D deficiency Hypertension Glaucoma Herniated intervertebral disc of lumbar spine Hyperlipemia Surgical History History of laminectomy Family History Mother Diabetes Heart disease Brother Diabetes CAD (coronary artery disease) Myocardial infarction Heart disease Pacemaker Father Heart disease Other DDD (degenerative disc disease), lumbar Hyperlipidemia Hypertension Social History Smoking Status: Former smoker alcohol intake: current alcohol intake frequency: holidays/special occasions only substance use type: does not use ROS Const Const: Positive for fatigue; Negative for weakness, daytime sleepiness or difficulty sleeping ENT ENT: Negative for dizziness or Nosebleed/epistaxis Cardio Chest Pain: No Palpitations: No Edema: None Resp Respiratory: Positive for SOB with activity (climbing stairs); Negative for SOB at rest, SOB orthopnea SOB lying down or Cough GI GI: Negative nausea, vomiting or heartburn Neuro Neuro: Positive for lightheadedness; Negative for dizziness, near syncope or weakness Endo Endo: Positive for fatigue Cardiology Exam Const Appearance: cooperative, healthy appearing, no acute distress, well developed and well groomed Nutritional Appearance: average body habitus and well nourished Orientation: alert, awake and oriented x3 Head Head: normal to inspection, normocephalic and atraumatic Ears: hearing grossly normal bilaterally and external ears normal Nose: external nose normal, nares normal, nasal mucous membranes and turbinates normal, septum normal and no nasal discharge Face and Sinus: face symmetric Mouth: oral mucosae normal, tongue normal, oropharynx normal and moist mucous membranes Teeth and gingiva: dentition normal Throat: posterior oropharynx normal, tonsils normal and uvula midline Eyes General: appearance normal, both eyes and all related structures Eyelids: eyelids normal Conjunctivae: conjunctivae normal Pupils: PERRL, norm (more content not included)... Normal [facility] Thyroid Stim Hormone (TSH)on 06-02-2025 TSH 2.510 uIU/mL Normal 0.300-4.200 [facility] Comment on above: Performed By: #### L 501.9591 #### [facility] [address] [place], [place], [address] Urine Cultureon 04-22-2025 URC Escherichia coli Casey Count >100,000 Escherichia coli: REACTION Ampicillin Islt [...] TMP SMX Islt NANCY <=20 S Normal [facility] Comment on above: Performed By: #### M 100.2205 #### [facility] [address] [place], [place], [id number] Laboratory - Chemistry and C hemistry - challengeOrdered By: Cinda Anglin on 04-20-2025 Bilirubin Ql (U) Negative [facility] Glucose Ql (U) Negative [facility] Ketones Ql (U) Negative [facility] pH (U) 6.0 [pH] [facility] Specific gravity (U) [Rel density] 1.015 [facility] Urobilinogen (U) [Mass/Vol] 0.0341867 mg/dL [facility] - Hematology and Cell countsOrdered By: Cinda Anglin on 04-20-2025 Hemoglobin Ql (U) Large [facility] - Specimen inform ationOrdered By: Cinda Anglin on 04-20-2025 Clarity (U) Cloudy [facility] Color (U) DARK YELLOW [facility] - UrinalysisOrder ed By: Cinda Anglin on 04-20-2025 Nitrite Ql (U) Positive [facility] Protein Ql (U) 3+ [facility] No Panel InformationOrdered By: Cinda Anglin on 04-20-2025 Urine Leukocytes Positive [facility] Urine Non-Hemolyzed Blood [facility] Urine cultureOrdered By: Ovidio Anglin on 04-20-2025 Bacteria identified Cx Nom (U) Escherichia coli Abnormal [facility] CBC W/Diff, Automatedon 07-0 Absolute Lymph 3.22 X10 3/uL Normal 0.83-4.51 [facility] Comment on above: Performed By: #### L 500.4100, L500.4050, L100.0100 #### [facility] [address] [place], [address] Absolute Neut 4.5 X10 3/uL Normal 2.0-7.7 [facility] Comment on above: Performed By: #### L 500.4100, L500.4050, L100.0100 #### [facility] [address] [place], [address] Basophils/100 WBC (Bld) 1.1 % High 0-1 [facility] Comment on above: Performed By: #### L 500.4100, L500.4050, L100.0100 #### [facility] [address] [place], [address] Eosinophils/100 WBC (Bld) 4.1 % Normal 0-5 [facility] Comment on above: Performed By: #### L 500.4100, L500.4050, L100.0100 #### [facility] [address] [place], [address] Erythrocyte distribution width (RBC) [Ratio] 12.3 % Normal 11.6-14.6 [facility] Comment on above: Performed By: #### L 500.4100, L500.4050, L100.0100 #### [facility] [address] [place], [address] Hematocrit (Bld) [Volume fraction] 44.8 % Normal 37-47 [facility] Comment on above: Performed By: #### L 500.4100, L500.4050, L100.0100 #### [facility] [address] [place], [address] Hemoglobin (Bld) [Mass/Vol] 14.8 g/dL Normal 12.0-15.0 [facility] Comment on above: Performed By: #### L 500.4100, L500.4050, L100.0100 #### [facility] [address] [place], [address] IG% 0.400 Normal 0.0-0.9 [facility] Comment on above: Result Comment: IG% - Immature Granulocytes (promyelocytes, myelocytes and metamyelocytes) > 1% indicates that a LEFT SHIFT is Present. Performed By: #### L 500.4100, L500.4050, L100.0100 #### [facility] [address] [place], [address] Lymphocytes/100 WBC (Bld) 35.1 % Normal 19-41 [facility] Comment on above: Performed By: #### L 500.4100, L500.4050, L100.0100 #### [facility] [address] [place], [address] MCH (RBC) [Entitic mass] 32.3 pg High 27.0-32.0 [facility] Comment on above: Performed By: #### L 500.4100, L500.4050, L100.0100 #### [facility] [address] [place], [address] MCHC (RBC) [Mass/Vol] 33.0 g/dL Normal 32-36 [facility] Comment on above: Performed By: #### L 500.4100, L500.4050, L100.0100 #### [facility] [address] [place], [address] MCV (RBC) [Entitic vol] 97.8 fL Normal 81-99 [facility] Comment on above: Performed By: #### L 500.4100, L500.4050, L100.0100 #### [facility] [address] [place], [address] Monocytes/100 WBC (Bld) 9.9 % Normal 0-10 [facility] Comment on above: Performed By: #### L 500.4100, L500.4050, L100.0100 #### [facility] [address] [place], [address] Neutrophils/100 WBC (Bld) 49.4 % Normal 47-70 [facility] Comment on above: Performed By: #### L 500.4100, L500.4050, L100.0100 #### [facility] [address] [place], [address] Nucleated RBC (Bld) [#/Vol] 0 10*3/uL Normal 0-5 [facility] Comment on above: Performed By: #### L 500.4100, L500.4050, L100.0100 #### [facility] [address] [place], [address] Platelet mean volume (Bld) [Entitic vol] 9.6 fL Normal 6.2-12.0 [facility] Comment on above: Performed By: #### L 500.4100, L500.4050, L100.0100 #### [facility] [address] [place], [address] Platelets (Bld) [#/Vol] 379 10*3/uL Normal 150-450 [facility] Comment on above: Performed By: #### L 500.4100, L500.4050, L100.0100 #### [facility] [address] [place], [address] RBC (Bld) [#/Vol] 4.58 10*6/uL Normal 4.2-5.4 [facility] Comment on above: Performed By: #### L 500.4100, L500.4050, L100.0100 #### [facility] [address] [place], [address] RDW SD 44.2 fl High 35.1-43.9 [facility] Comment on above: Performed By: #### L 500.4100, L500.4050, L100.0100 #### [facility] [address] [place], [address] WBC (Bld) [#/Vol] 9.2 10*3/uL Normal 4.4-11.[address] [facility] Comment on above: Performed By: #### L 500.4100, L500.4050, L100.0100 #### [facility] [address] [place], [address] Comprehensive Metabolic Prof [facility] 02-09-2025 Albumin [Mass/Vol] 4.2 g/dL Normal 3.4-4.[address] [facility] Comment on above: Performed By: #### L 500.4100, L500.4050, L100.0100 #### [facility] [address] [place], [address] Albumin/Globulin [Mass ratio] 1.2 {ratio} Normal 0.9-2.4 [facility] Comment on above: Performed By: #### L 500.4100, L500.4050, L100.0100 #### [facility] [address] [place], [address] ALK PHOS 84 U/L Normal 35-104 [facility] Comment on above: Performed By: #### L 500.4100, L500.4050, L100.0100 #### [facility] [address] [place], [address] ALT [Catalytic activity/Vol] 21 U/L Normal <=34 [facility] Comment on above: Performed By: #### L 500.4100, L500.4050, L100.0100 #### [facility] [address] [place], [address] AST [Catalytic activity/Vol] 33 U/L High <=31 [facility] Comment on above: Performed By: #### L 500.4100, L500.4050, L100.0100 #### [facility] [address] [place], [address] Bilirubin [Mass/Vol] 0.46 mg/dL Normal 0.00-1.30 [facility] Comment on above: Performed By: #### L 500.4100, L500.4050, L100.0100 #### [facility] [address] [place], [address] BUN/CRE 17.4 RATIO Normal 10-20 [facility] Comment on above: Performed By: #### L 500.4100, L500.4050, L100.0100 #### [facility] [address] [place], [address] Calcium [Mass/Vol] 9.8 mg/dL Normal 7.6-11.[address] [facility] Comment on above: Performed By: #### L 500.4100, L500.4050, L100.0100 #### [facility] [address] [place], [address] Chloride [Moles/Vol] 100 mmol/L Normal 98-108 [facility] Comment on above: Performed By: #### L 500.4100, L500.4050, L100.0100 #### [facility] [address] [place], [address] CO2 [Moles/Vol] 23.0 mmol/L Normal 21.0-32.0 [facility] Comment on above: Performed By: #### L 500.4100, L500.4050, L100.0100 #### [facility] [address] [place], [address] Creatinine [Mass/Vol] 0.97 mg/dL Normal 0.70-1.20 [facility] Comment on above: Performed By: #### L 500.4100, L500.4050, L100.0100 #### [facility] [address] [place], [address] GAP 13 Normal 5-15 [facility] Comment on above: Performed By: #### L 500.4100, L500.4050, L100.0100 #### [facility] [address] [place], [address] GFR/1.73 sq M.predicted among non-blacks MDRD (S/P/Bld) [Vol rate/Area] 60 mL/min/{1.73_m2} Normal >60 [facility] Comment on above: Result Comment: mL/m in/1.73m2 CKD-EPI Creatinine Equation (2020) Performed By: #### L 500.4100, L500.4050, L100.0100 #### [facility] [address] [place], [address] Globulin (S) [Mass/Vol] 3.4 g/dL Normal 2.2-4.2 [facility] Comment on above: Performed By: #### L 500.4100, L500.4050, L100.0100 #### [facility] [address] [place], [address] Glucose [Mass/Vol] 108 mg/dL High 70-[address] [facility] Comment on above: Performed By: #### L 500.4100, L500.4050, L100.0100 #### [facility] [address] [place], [address] Potassium [Moles/Vol] 4.2 mmol/L Normal 3.3-5.1 [facility] Comment on above: Performed By: #### L 500.4100, L500.4050, L100.0100 #### [facility] [address] [place], [address] Sodium [Moles/Vol] 136 mmol/L Normal 133-[address] [facility] Comment on above: Performed By: #### L 500.4100, L500.4050, L100.0100 #### [facility] [address] [place], [address] T PROT 7.5 g/dL Normal 5.9-8.4 [facility] Comment on above: Performed By: #### L 500.4100, L500.4050, L100.0100 #### [facility] [address] [place], [address] Urea nitrogen [Mass/Vol] 17 mg/dL Normal 4-19 [facility] Comment on above: Performed By: #### L 500.4100, L500.4050, L100.0100 #### [facility] [address] [place], [address] Lipid Profileon 02-09-2025 CHOL:HDL 2.96 Normal [facility] Comment on above: Performed By: #### L 500.4100, L500.4050, L100.0100 #### [facility] [address] [place], [address] Cholesterol [Mass/Vol] 169 mg/dL Normal <=200 [facility] Comment on above: Result Comment: Chol esterol level, Desirable <200 mg/dL Borderline high cholesterol 200-239 mg/dL High cholesterol >=240 mg/dL Recommendations of the NCEP Adult Treatment Panel for the following risk-cutoff thresholds for the [place] population. Performed By: #### L 500.4100, L500.4050, L100.0100 #### [facility] [address] [place], [address] Cholesterol in HDL [Mass/Vol] 57 mg/dL Normal [facility] Comment on above: Result Comment: Saundra onal Cholesterol Education Program (NCEP) guidelines: <40 mg/dL: Low HDL-cholesterol (major risk factor for CHD) >= 60 mg/dL: High HDL-cholesterol (negative risk factor for CHD) HDL-cholesterol is affected by a number of factors, e.g. smoking, exercise, hormones, sex and age. Performed By: #### L 500.4100, L500.4050, L100.0100 #### [facility] [address] [place], [address] Cholesterol in LDL [Mass/Vol] 81 mg/dL Normal [facility] Comment on above: Result Comment: Bord ozqymo=462-992 mg/dL Higher Njnc=027 mg/dL or greater Performed By: #### L 500.4100, L500.4050, L100.0100 #### [facility] [address] [place], [address] Cholesterol in VLDL [Mass/Vol] 31 mg/dL Normal 5-40 [facility] Comment on above: Performed By: #### L 500.4100, L500.4050, L100.0100 #### [facility] [address] [place], [address] Triglyceride [Mass/Vol] 154 mg/dL Normal [facility] Comment on above: Result Comment: The drugs N-Acetylcysteine and Metamizole may falsely depress this assay. Normal range: <150 mg/dL Borderline High: 150-199 mg/dL High: 200-499 mg/dL Very High: >500 mg/dL Performed By: #### L 500.4100, L500.4050, L100.0100 #### [facility] [address] [place], [address] Absolute lymphocyte countOrd ered By: Cinda Anglin on 02-08-2025 Lymphocytes Auto (Unsp spec) [#/Vol] 3.22 10*3/uL 0.83-4.51 [facility] Absolute neutrophil countOrd ered By: Cinda Anglin on 02-08-2025 Neutrophils (Bld) [#/Vol] 4.5 10*3/uL 2.0-7.7 [facility] Anion gap in Serum or Plasma Ordered By: Cinda Anglin on 02-08-2025 Anion gap [Moles/Vol] 13 mmol/L 5-15 [facility] Automated lymphocyte count a s percentage of total leukocytesOrdered By: Cinda Anglin on 02-08-2025 Lymphocytes/100 WBC Auto (Unsp spec) 35.1 % 19-41 [facility] BUN/creatinine ratioOrdered By: Cinda Anglin on 02-08-2025 Urea nitrogen/Creatinine [Mass ratio] 17.4 mg/mg 10-20 [facility] Basophil percentageOrdered B y: Cinda Anglin on 02-08-2025 Basophils/100 WBC (Bld) 1.1 % High 0-1 [facility] Bilirubin, totalOrdered By: Cinda Anglin on 02-08-2025 Bilirubin [Mass/Vol] 0.46 mg/dL 0.00-1.30 [facility] Calculated very low density lipoprotein (VLDL) cholesterol measurementOrdered By: Cinda Anglin on 02-08-2025 Calculated very low density lipoprotein (VLDL) cholesterol measurement 31 mg/dL 5-40 [facility] Carbon dioxide, total [Moles /volume] in Central venous bloodOrdered By: Cinda Anglin on 02-08-2025 CO2 [Moles/Vol] 23.0 mmol/L 21.0-32.0 [facility] Chloride assayOrdered By: Do ra Anglin on 02-08-2025 Chloride [Moles/Vol] 100 mmol/L 98-108 [facility] Eosinophil percentageOrdered By: Cinda Anglin on 02-08-2025 Eosinophils/100 WBC (Bld) 4.1 % 0-5 [facility] Erythrocyte distribution wid th ratioOrdered By: Cinda Anglin on 02-08-2025 Erythrocyte distribution width (RBC) [Ratio] 12.3 % 11.6-14.6 [facility] Erythrocyte distribution wid th standard deviationOrdered By: Cinda Anglin on 02-08-2025 Erythrocyte distribution width (RBC) [Ratio] 44.2 fl High 35.1-43.9 [facility] Glomerular filtration rate ( GFR) estimation/1.73 sq m using serum, plasma, or whole bOrdered By: Cidna Anglin on 02-08-2025 GFR/1.73 sq M.predicted among non-blacks MDRD (S/P/Bld) [Vol rate/Area] 60 mL/min/{1.73_m2} >60 [facility] Comment on above: mL/min/1.73m2 CKD-EP I Creatinine Equation (2020) Hematocrit Auto (Bld) [Volum e fraction]Ordered By: Cinda Anglin on 02-08-2025 Hematocrit (Bld) [Volume fraction] 44.8 % 37-47 [facility] Hemoglobin measurementOrdere d By: Cinda Anglin on 02-08-2025 Hemoglobin (Bld) [Mass/Vol] 14.8 g/dL 12.0-15.0 [facility] Immature granulocytes/100 WB C Auto (Bld)Ordered By: Cinda Anglin on 02-08-2025 Immature granulocytes/100 WBC (Bld) 0.400 % 0.0-0.9 [facility] Comment on above: IG% - Immature Granu locytes (promyelocytes, myelocytes and metamyelocytes) > 1% indicates that a LEFT SHIFT is Present. LDL calc ser/plasOrdered By: Cinda Anglin on 02-08-2025 Cholesterol in LDL [Mass/Vol] 81 mg/dL [facility] Comment on above: Atvfnellql=222-568 m g/dL & Higher Djsm=998 mg/dL or greater Laboratory - Chemistry and C hemistry - challengeOrdered By: Cinda Anglin on 02-08-2025 AST [Catalytic activity/Vol] 33 U/L High <32 [facility] MCV (mean corpuscular volume ) determinationOrdered By: Cinda Anglin on 02-08-2025 MCV (RBC) [Entitic vol] 97.8 fL 81-99 [facility] Mean corpuscular hemoglobin (MCH) determinationOrdered By: Cinda Anglin on 02-08-2025 MCH (RBC) [Entitic mass] 32.3 pg High 27.0-32.0 [facility] Mean corpuscular hemoglobin concentration (MCHC) determinationOrdered By: Cinda Anglin on 02-08-2025 MCHC (RBC) [Mass/Vol] 33.0 g/dL 32-36 [facility] Mean platelet volume determi nationOrdered By: Cinda Anglin on 02-08-2025 Platelet mean volume (Bld) [Entitic vol] 9.6 fL 6.2-12.0 [facility] Monocyte percentageOrdered B y: Cinda Anglin on 02-08-2025 Monocytes/100 WBC (Bld) 9.9 % 0-10 [facility] Neutrophil percentageOrdered By: Cinda Anglin on 02-08-2025 Neutrophils/100 WBC (Bld) 49.4 % 47-70 [facility] Nucleated red blood cell per centageOrdered By: Cinda Anglin on 02-08-2025 Nucleated RBC/100 WBC (Bld) [Ratio] 0 % 0-5 [facility] Platelet countOrdered By: Do ra Anglin on 02-08-2025 Platelets (Bld) [#/Vol] 379 10*3/uL 150-450 [facility] Potassium measurement (mass/ volume)Ordered By: Cinda Anglin on 02-08-2025 Potassium (Unsp spec) [Mass/Vol] 4.2 mmol/L 3.3-5.1 [facility] RBC Auto (Bld) [#/Vol]Ordere d By: Cinda Anglin on 02-08-2025 RBC (Bld) [#/Vol] 4.58 10*6/uL 4.2-5.4 [facility] Screening total cholesterol/ high density lipoprotein (HDL) cholesterol ratioOrdered By: Cinda Anglin on 02-08-2025 Cholesterol.total/Choles terol in HDL [Mass ratio] 2.96 {ratio} [facility] Serum creatinine measurement (mass/volume)Ordered By: Cinda Anglin on 02-08-2025 Creatinine [Mass/Vol] 0.97 mg/dL 0.70-1.20 [facility] Serum globulin measurementOr dered By: Cinda Anglin on 02-08-2025 Globulin (S) [Mass/Vol] 3.4 g/dL 2.2-4.2 [facility] Serum glucose measurement (m ass/volume)Ordered By: Cinda Anglin on 02-08-2025 Glucose [Mass/Vol] 108 mg/dL High 70-[address] [facility] Serum or plasma alanine schultz otransferase (ALT) measurementOrdered By: Cinda Anglin on 02-08-2025 ALT [Catalytic activity/Vol] 21 U/L <35 [facility] Serum or plasma albumin telma urement (mass/volume)Ordered By: Cinda Anglin on 02-08-2025 Albumin [Mass/Vol] 4.2 g/dL 3.4-4.[address] [facility] Serum or plasma albumin/glob ulin mass ratioOrdered By: Cinda Anglin on 02-08-2025 Albumin/Globulin [Mass ratio] 1.2 {ratio} 0.9-2.4 [facility] Serum or plasma alkaline yoseph sphatase measurementOrdered By: Cinda Anglin on 02-08-2025 ALP [Catalytic activity/Vol] 84 U/L 35-104 [facility] Serum or plasma calcium telma urement (mass/volume)Ordered By: Cinda Anglin on 02-08-2025 Calcium [Mass/Vol] 9.8 mg/dL 7.6-11.[address] [facility] Serum or plasma cholesterol in HDL measurement (mass/volume)Ordered By: Cinda Anglin on 02-08-2025 Cholesterol in HDL [Mass/Vol] 57 mg/dL >40 [facility] Comment on above: National Cholesterol Education Program (NCEP) guidelines:<40 mg/dL: Low HDL-cholesterol (major risk factor for CHD)>= 60 mg/dL: High HDL-cholesterol (negative risk factor for CHD)HDL-cholesterol is affected by a number of factors, e.g. smoking, exercise, hormones, sex and age. Serum or plasma cholesterol measurement (mass/volume)Ordered By: Cinda Anglin on 02-08-2025 Cholesterol [Mass/Vol] 169 mg/dL <201 [facility] Comment on above: Cholesterol level, D esirable <200 mg/dLBorderline high cholesterol 200-239 mg/dLHigh cholesterol >=240 mg/dLRecommendations of the NCEP Adult Treatment Panel for the following risk-cutoff thresholds for the [place] population. Serum or plasma urea nitroge n measurement (mass/volume)Ordered By: Cinda Anglin on 02-08-2025 Urea nitrogen [Mass/Vol] 17 mg/dL 4-19 [facility] Sodium levelOrdered By: Cinda Anglin on 02-08-2025 Sodium [Moles/Vol] 136 mmol/L 133-[address] [facility] Total proteinOrdered By: Ovidio Anglin on 02-08-2025 Protein [Mass/Vol] 7.5 g/dL 5.9-8.[address] [facility] Triglycerides measurementOrd ered By: Cinda Anglin on 02-08-2025 Triglyceride [Mass/Vol] 154 mg/dL <199 [facility] Comment on above: The drugs N-Acetylcy steine and Metamizole may falsely depress this assay. Normal range: <150 mg/dLBorderline High: 150-199 mg/dLHigh: 200-499 mg/dLVery High: >500 mg/dL White blood cell (WBC) count Ordered By: Cinda Anglin on 02-08-2025 WBC (Bld) [#/Vol] 9.2 10*3/uL 4.4-11.[address] [facility] 36on 07-04-2024 36 duplicate Normal [facility] CR Spine Lumbosacral 4+ View son 03-14-2020 CR Spine Lumbosacral 4+ Views Patient Name: FAISAL BANEGAS I Diagnostic Radiology Exam Date/Time 03/14/2020 15:17:00 EDT Exam CR Spine Lumbosacral 4+ Views Ordering Physician GEORGE ANGLIN DORA L Accession Number [id number] CPT4 Codes 46913 () Reason For Exam PAIN RT LEG [...] Transcribed Date and Time: 03/14/2020 8:46 Normal [facility] XR LUMBAR SPINE (MIN 4 VIEWS )on 03-14-2020 Patient Name: FAISAL BANEGAS I ---Diagnostic Radiology--- Exam Date/Time 03/14/2020 15:17:00 EDT Exam CR Spine Lumbosacral 4+ Views Ordering Physician GEORGE ANGLIN DORA L Accession Number [id number] CPT4 Codes 80895 () Reason For Exam PAIN RT LEG [...] R Transcribed Date and Time: 03/14/2020 8:46 [facility] [place], [place], [facility] Incoming Radiology Results From [facility] - 03/14/2020 8:46 PM EDT Patient Name: FAISAL BANEGAS I ---Diagnostic Radiology--- Exam Date/Time 03/14/2020 15:17:00 EDT Exam CR Spine Lumbosacral 4+ Views Ordering Physician GEORGE ANGLIN DORA L Accession Number [id number] CPT4 Codes 77876 () Reason For Exam PAIN RT LEG [...] R Transcribed Date and Time: 03/14/2020 8:46 [place] Vital Signs Date Time Vital Sign Value Performing Clinician Faci yingy 04-20-2025 17:26-0400 Body height 154.94 cm Cinda LOMBARDIC Work Phone: [facility] 04-20-2025 17:26-0400 Body mass index (BMI) [Ratio] 26.8 kg/m2 Cinda LOMBARDIC Work Phone: [facility] 04-20-2025 17:26-0400 Body temperature 98.8 [degF] Cinda Anglin TEMPLATE STORAGE CLERK-C Work Phone: [facility] 04-20-2025 17:26-0400 Body weight 64.41 kg Cinda Anglin TEMPLATE STORAGE CLERK-C Work Phone: [facility] 04-20-2025 17:26-0400 Diastolic blood pressure 60 mm[Hg] Cinda Anglin TEMPLATE STORAGE CLERK-C Work Phone: [facility] 04-20-2025 17:26-0400 Heart rate 114 /min Cinda Anglin TEMPLATE STORAGE CLERK-C Work Phone: [facility] 04-20-2025 17:26-0400 Respiratory rate 18 /min Cinda Anglin TEMPLATE STORAGE CLERK-C Work Phone: [facility] 04-20-2025 17:26-0400 SaO2% (BldA) [Mass fraction] 98 % Cinda Anglin TEMPLATE STORAGE CLERK-C Work Phone: [facility] 04-20-2025 17:26-0400 Systolic blood pressure 128 mm[Hg] Cinda Anglin TEMPLATE STORAGE CLERK-C Work Phone: [facility] 02-08-2025 15:10-0400 Body height 154.94 cm Cinda Anglin TEMPLATE STORAGE CLERK-C Work Phone: [facility] 02-08-2025 15:10-0400 Body mass index (BMI) [Ratio] 27.3 kg/m2 [place] Anglin TEMPLATE STORAGE CLERK-C Work Phone: [facility] 02-08-2025 15:10-0400 Body temperature 97.9 [degF] Cinda Anglin TEMPLATE STORAGE CLERK-C Work Phone: [facility] 02-08-2025 15:10-0400 Body weight 65.77 kg Cinda Anglin TEMPLATE STORAGE CLERK-C Work Phone: [facility] 02-08-2025 15:10-0400 Diastolic blood pressure 80 mm[Hg] Cinda Anglin TEMPLATE STORAGE CLERK-C Work Phone: [facility] 02-08-2025 15:10-0400 Heart rate 98 /min [place] Anglin TEMPLATE STORAGE CLERK-C Work Phone: [facility] 02-08-2025 15:10-0400 Respiratory rate 18 /min Cinda Anglin TEMPLATE STORAGE CLERK-C Work Phone: [facility] 02-08-2025 15:10-0400 SaO2% (BldA) [Mass fraction] 98 % Cinda Anglin TEMPLATE STORAGE CLERK-C Work Phone: [facility] 02-08-2025 15:10-4750 Systolic blood pressure 142 mm[Hg] Cinda Anglin TEMPLATE STORAGE CLERK-C Work Phone: [facility] Encounters Encounter Date Encounter Type Care Provider Facility Start: 06-16-20[facility] Start: 06-02-2025 End: 06-02-2025 ambulatory Cinda Anglin TEMPLATE STORAGE CLERK [facility] Start: 06-02-2025 End: 06-02-2025 ambulatory [facility] Facility:[facility] Start: 04-20-2025 End: 04-20-2025 ambulatory Cinda Anglin TEMPLATE STORAGE CLERK-C Work Phone: -Laboratory Specimen Start: 04-20-2025 End: 04-20-2025 Patient encounter procedure Cinda Anglin TEMPLATE STORAGE CLERK-C -Laboratory Specimen Work Phone: Start: 04-20-2025 End: 04-20-2025 ambulatory Cinda Anglin TEMPLATE STORAGE CLERK Facility:[facility] Start: 02-08-2025 End: 02-08-2025 ambulatory Cinda Anglin TEMPLATE STORAGE CLERK-C Work Phone: -Laboratory Specimen Start: 02-08-2025 End: 02-08-2025 Patient encounter procedure Cinda Anglin TEMPLATE STORAGE CLERK-C -Laboratory Specimen Work Phone: Start: 02-08-2025 End: 02-08-2025 ambulatory Cinda Anglin TEMPLATE STORAGE CLERK Facility:[facility] Start: 07-04-2024 End: 07-04-2024 Telephone encounter Sola Hernandez RN [facility] Clinical Communication Start: 02-20-2022 Patient encounter status Cinda Derrek TEMPLATE STORAGE CLERK-C Work Phone: [facility] Start: 03-14-2020 End: 03-14-2020 Subsequent hospital visit by physician Cinda Anglin Work Phone: [facility] Radiology Procedures Date Procedure Procedure Detail Performing Clinician Start: 04-20-2025 Urine culture Cinad frankiln TEMPLATE STORAGE CLERK-C Work Phone: Start: 03-14-2020 Radex spine lumbosac ral minimum 4 views Cinda Anglin Work Phone: Plan of Treatment Date Care Activity Detail Author Start: 04-12-2020 Influenza vaccination Flu vaccine (# 1) [place], [place] Start: 04-09-2019 Creatinine measurement Creatinine mo [place]itoring [place] Start: 04-09-2019 Lipid panel Lipid screen [place], [place] Start: 04-09-2019 Potassium monitoring Potassium monit oring [place] Start: 01-29-2019 Annual Wellness Visi t (AWV) Annual Wellness Visit (AWV) [place] Start: 01-01-2019 Screening for malign ant neoplasm of breast Breast cancer screen [place] Start: 04-03-2018 Screening for malign ant neoplasm of colon Colon Cancer Screen FIT/FOBT [place] Start: 12-13-2015 DTaP/Tdap/Td vaccine (2 - Td) DTaP/Tdap/Td vaccine (2 - Td) [place] Start: 02-18-1996 Shingles Vaccine (1 of 2) Adamson gles Vaccine (1 of 2) [place], [place] Start: 1945 Hepatitis C screening Hepatitis C sc reen [place], [place] Immunizations Immunization Date Immunization Notes Care Provider Vaughn aponte 06-05-2018 influenza, high dose seasonal, preservative-free [facility] 09-24-2017 pneumococcal polysaccharide vaccine, 23 valent [place], [place] 07-12-2017 influenza, high dose seasonal, preservative-free [place] 05-22-2016 influenza, injectabl e, quadrivalent, contains preservative [place] 02-20-2016 pneumococcal conjuga te vaccine, [address] [facility] 12-12-2005 tetanus toxoid, redu alma delia diphtheria toxoid, and acellular pertussis vaccine, adsorbed [place], [place] Payers Date Payer Category Payer Self-pay [id number] 2025 Self-pay 2014 Medicare MEDICARE MEDICAR E PART A AND B [id number] 2014-Present [phone] [place] [address] [id number] 2014 Unknown [employer] [id number] 2014-Present [phone] [address] [place] [address] [id number] Medicare [id number] Medicare [id number] Unknown [id number] Unknown [id number] 2 Unknown [id number] 2 Unknown [id number] 2 Unknown [id number] 2 Unknown [id number] 2 Social History Date Type Detail Facility Start: 06-05-2018 Tobacco smoking stat [facility] Former smoker [facility] End: 06-05-2006 History of tobacco use Current smoker [place], [place] End: 06-05-2006 History of tobacco use Cigarette Smoker [place] Start: 06-05-2018 Cigarettes smoked current (pack per day) - Reported [place] Start: 06-05-2018 Tobacco use and exposure Never used [place] Start: 06-05-2018 Alcohol intake Current drinke r of alcohol (finding) [place] Start: 04-04-2015 Alcohol Comment Occasionally Mariah Stearns [place], [place] Start: 1945 Sex Assigned At Not on file [place] Start: 03-12-2022 Sex Female (finding) [facility] Gender identity Not on file [facility] Tobacco smoking stat us [facility] Unknown if ever smoked [facility] Work Phone: Start: 1945 Sex Assigned At Female [facility] Evaluation note 02-08-2025 Note Date & Type Note Facility 02-08-2025 Evaluation note Diagnosis Onset Date Resolution Hyperlipidemia LDL goal <130 acute February 08, 2025 3:02pm Hypertension chronic February 08, 2 025 3:02pm [facility] Work Phone: Evaluation note 02-08-2025 Note Date & Type Note Facility 02-08-2025 Evaluation note Diagnosis Onset Date Resolution Hypertension chronic February 08, 2 025 3:02pm Hyperlipidemia LDL goal <130 deleted February 08, 2025 3:02pm Heavy sensation of lower extremity acute April 20, 2 025 5:14pm Dysuria resolved April 20, 2025 5:14pm UTI (urinary tract infection) resolved April 20, 2 025 5:14pm [facility] Work Phone: Telephone encounter Note 07-04-2024 Telephone Encounter - Sola Hernandez RN - 07/04/2024 10:35 AM EST Note Date & Type Note Facility 07-04-2024 Telephone encounter Note Form atting of this note might be different from the original. duplicate [facility] Note 07-04-2024 Telephone Encounter - Sola Hernandez RN - 07/04/2024 10:35 AM EST Note Date & Type Note Facility 07-04-2024 Miscellaneous Notes Formattin g of this note might be different from the original. 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 Summary Purpose Family History No Family History Records Found Relationship Condition Age at Onset Recorded Date/T [...] 08, 2025 3:02pm Urinary tract infection April 20 5:14pm Reason for Visit Admit Date Hypertension February 08, 2025 3:02 pm Hyperlipidemia LDL goal <130 February 08, 2025 3:02pm Heavy sensation of lower extremity Septe mber 2024 5:14pm Dysuria April 20, 2025 5:14pm UTI (urinary tract infection) April 20, 2025 5:14pm Additional Source Comments INFORMATION SOURCE (unrecogn ized section and content) DATE CREATED AUTHOR 03/18/2020 [facility] DATE CREATED AUTHOR AUTHOR'S ORGANIZ ATION 07/07/2024 [facility] DATE CREATED AUTHOR AUTHOR'S ORGANIZ ATION 06/13/2025 [facility] Reason for Visit (unrecogniz ed section and content) Reason Onset Date Comments Error (VOID this visit) 07/04/2024 Care Teams (unrecognized sec tion and content) Service Coordinator Relationship Specialty Start Date End Date Cinda Anglin [address] [place] [address] PCP - General 03/14/20 Team Status: Active Member Role/Relationship Status Dates Cinda Anglin TEMPLATE STORAGE CLERK, TEMPLATE STORAGE CLERK-C Primary Care Provider Active Team Status: Inactive Member Role/Relationship Status Dates Cinda Anglin TEMPLATE STORAGE CLERK, TEMPLATE STORAGE CLERK-C Primary Care Provider Active Start: February 08, 2025 End: February 08, 2025 Cinda Anglin TEMPLATE STORAGE CLERK, TEMPLATE STORAGE CLERK-C Attending Provider Active Start: February 08, 2025 End: February 08, 2025 Cinda Anglin TEMPLATE STORAGE CLERK, TEMPLATE STORAGE CLERK-C Referring Provider Active Start: February 08, 2025 End: February 08, 2025 Team Status: Inactive Member Role/Relationship Status Dates Cinda Anglin TEMPLATE STORAGE CLERK, TEMPLATE STORAGE CLERK-C Primary Care Provider Active Start: February 08, 2025 End: February 08, 2025 Cinda Anglin TEMPLATE STORAGE CLERK, TEMPLATE STORAGE CLERK-C Attending Provider Active Start: February 08, 2025 End: February 08, 2025 Cinda Anglin TEMPLATE STORAGE CLERK, TEMPLATE STORAGE CLERK-C Referring Provider Active Start: February 08, 2025 End: February 08, 2025 Team Status: Active Member Role/Relationship Status Dates Cinda Anglin TEMPLATE STORAGE CLERK, TEMPLATE STORAGE CLERK-C Primary care physician Active Team Status: Inactive Member Role/Relationship Status Dates Cinda Anglin TEMPLATE STORAGE CLERK, TEMPLATE STORAGE CLERK-C Primary care physician Active Start: February 08, 2025 End: February 08, 2025 Cinda Anglin TEMPLATE STORAGE CLERK, TEMPLATE STORAGE CLERK-C Attending physician Active Start: February 08, 2025 End: February 08, 2025 Cinda Anglin TEMPLATE STORAGE CLERK, TEMPLATE STORAGE CLERK-C Referring Provider Active Start: February 08, 2025 End: February 08, 2025 Team Status: Inactive Member Role/Relationship Status Dates Cinda Anglin TEMPLATE STORAGE CLERK, TEMPLATE STORAGE CLERK-C Primary care physician Active Start: February 08, 2025 End: February 08, 2025 Cinda Anglin TEMPLATE STORAGE CLERK, TEMPLATE STORAGE CLERK-C Attending physician Active Start: February 08, 2025 End: February 08, 2025 Cinda Anglin TEMPLATE STORAGE CLERK, TEMPLATE STORAGE CLERK-C Referring Provider Active Start: February 08, 2025 End: February 08, 2025 Team Status: Inactive Member Role/Relationship Status Dates Cinda Anglin TEMPLATE STORAGE CLERK, TEMPLATE STORAGE CLERK-C Primary care physician Active Start: April 20, 2025 End: April 20, 2025 Cinda Anglin TEMPLATE STORAGE CLERK, TEMPLATE STORAGE CLERK-C Attending physician Active Start: April 20, 2025 End: April 20, 2025 Cinda Anglin TEMPLATE STORAGE CLERK, TEMPLATE STORAGE CLERK-C Referring Provider Active Start: April 20, 2025 End: April 20, 2025 Team Status: Inactive Member Role/Relationship Status Dates Cinda Anglin TEMPLATE STORAGE CLERK, TEMPLATE STORAGE CLERK-C Primary care physician Active Start: April 20, 2025 End: April 20, 2025 Cinda Anglin NP, TEMPLATE STORAGE CLERK-C Attending physician Active Start: April 20, 2025 [...] BE BASED ON THE PRIMARY CLINICAL RECORDS. [employer] provides no warranty or guarantee of the accuracy or completeness of information in this document.
--- NOTE | 2025-06-26 10:51 | STRESSREP ---
Stress Test Report Pharmacologic myocardial perfusion stress test. 80-year-old lady with a history of left bundle branch block. Resting EKG demonstrates normal sinus rhythm with a left bundle branch block with a rate of 84 bpm. Resting blood pressure is 126/78 mmHg. 0.4 mg of regadenoson was infused per usual protocol followed by rapid intravenous saline flush injection. Continuous EKG monitoring was performed. The maximum heart rate was 112 bpm which was 79% of max impacted heart rate the maximum workload was 1 metabolic equivalent. At rest there were no ST or T wave changes noted to suggest ischemia and at peak infusion nonspecific ST changes were noted which did not meet the criteria for ischemia. No clinical angina is noted. The final blood pressure was 126/78 mmHg. Myocardial perfusion protocol. 11 point mCi of technetium 99m sestamibi was injected at rest. 0.4 mg of regadenoson was infused per usual protocol. At peak infusion 34.5 mCi of technetium 99m sestamibi was injected stress images were obtained stress and rest images were reconstructed and compared in the short axis vertical long and horizontal long axis. Gated images were also obtained. Perfusion SPECT analysis: Review of the stress images demonstrate normal uptake of tracer noted in all areas of the myocardium. There is a small defect noted in the distal anteroseptal wall. The resting images similar demonstrated normal uptake of tracer noted in all areas of the myocardium. Persistent defect in the distal anteroseptal wall remains. The above is a history of a left bundle branch block changes. No areas of reversibility are noted to suggest ischemia and no previous infarct is noted. Gated SPECT analysis: The gated ejection fraction is 72%. Conclusion: Normal pharmacologic myocardial perfusion stress test. Preserved ejection fraction.
== END | disposition home or self-care (01) ==
LOC: CVS 06:35
PROVIDERS: PCP Nurse Practitioner; Referring Provider Internal Medicine Cardiovascular Disease; Visit Provider Internal Medicine Cardiovascular Disease
DX: I44.7 Left bundle-branch block, unspecified (principal); R94.31 Abnormal electrocardiogram [ECG] [EKG]
CPT/HCPCS: 78452; 93017; A9500; A4216; J2785